=== PATIENT | female | born 1945 | race Caucasian/White ===

== ENCOUNTER 2022-03-03 21:07 | Inpatient (IN) | payer MEDICARE, OTHER ==
[~2022-03-03] VITALS: Ht 170.2 cm; Wt 105.0 kg
[~2022-03-03 21:07] MED LIST: ENAL20TA75 PO; HCTZ25T PO; NORCO10T PO; TRAZ-91 PO; ZOC40T PO
[2022-03-03] MEDS ORDERED: normal saline 1000ML IV soln IV ONE (21:20)
[2022-03-03] MEDS ORDERED: CefTRIAXone 2gm/D5W 50ml BAG 50 ML IV ONE (21:20)
[2022-03-03 22:00] LABS: BASOPHILS # (AUTO) 0.1 X10'3 (0-0.2); LYMPHOCYTES # (AUTO) 1.2 X10'3 (1.1-4.8)
[2022-03-03 22:01] LABS: BASOPHILS % (AUTO) 0.3 % (0-1); EOSINOPHILS % (AUTO) 0.1 % (0-6); LYMPHOCYTES % (AUTO) 5.2 % (21-51); MEAN CORPUSCULAR HEMOGLOBIN 27.7 PG (27.0-31.0); MEAN CORPUSCULAR HGB CONC 32.6 g/dL (33.0-36.5); MEAN CORPUSCULAR VOLUME 84.9 FL (78-98); MEAN PLATELET VOLUME 9.2 FL (7.4-10.4); MONOCYTES # (AUTO) 2.2 X10'3 (0-0.9); MONOCYTES % (AUTO) 9.7 % (2-12); NEUTROPHILS # (AUTO) 19.1 X10'3 (1.8-7.7); NEUTROPHILS % (AUTO) 84.7 % (42-75); PLATELET COUNT 306 X10'3 (140-440); RED BLOOD COUNT 4.71 X10'6 (4.20-5.60); RED CELL DISTRIBUTION WIDTH 15.1 % (11.5-14.5); WHITE BLOOD COUNT 22.5 X10'3 (4.5-11.0)
[2022-03-03 22:22] LABS: ALANINE AMINOTRANSFERASE 31 U/L (12-78); ALBUMIN 3.1 G/DL (3.4-5.0); ALBUMIN/GLOBULIN RATIO 0.6 (1.1-1.5); ALKALINE PHOSPHATASE 117 IU/L (46-116); ASPARTATE AMINO TRANSFERASE 27 U/L (10-37); BILIRUBIN,TOTAL 0.6 MG/DL (0.1-1.0); BLOOD UREA NITROGEN 19 MG/DL (7-18); BUN/CREATININE RATIO 10.6 (6.6-38.0); CHLORIDE 101 MMOL/L (99-107); CREATININE 1.79 MG/DL (0.40-0.90); SODIUM 138 MMOL/L (135-145); TOTAL PROTEIN 8.1 G/DL (6.4-8.2); eGFR 27 ML/MIN
[2022-03-03 22:30] LABS: ANION GAP 15 (8-16); CALCIUM 9.4 MG/DL (8.5-10.1); GLUCOSE 167 MG/DL (70-104); TOTAL CARBON DIOXIDE 22.3 MMOL/L (24-32)
[2022-03-03 22:34] LABS: TOTAL CELLS COUNTED 100
[2022-03-03 22:36] LABS: PLATELET ESTIMATE NORMAL
[2022-03-03] MEDS ORDERED: diphenhydrAMINE 25mg capsule PO PRN (23:05)
[2022-03-03] MEDS ORDERED: ondansetron/PF 4mg/2ml inj IV PRN (23:05)
[2022-03-03] MEDS ORDERED: acetaminophen 650mg rectal suppository RC PRN (23:05)
[2022-03-03] MEDS ORDERED: ondansetron 4mg rapidly disintigrating tab PO PRN (23:05)
[2022-03-03] MEDS ORDERED: bisacodyl 10mg suppository rectal RC PRN (23:05)
[2022-03-03] MEDS ORDERED: mag hydrox/Alum hydrox/simeth 30ml oral suspension PO PRN (23:05)
[2022-03-03] MEDS ORDERED: acetaminophen 325mg tablet PO PRN ×2 (23:05)
[2022-03-03] MEDS ORDERED: magnesium hydroxide 30ml (MOM) UD suspension PO PRN (23:05)
[2022-03-03] MEDS ORDERED: diphenhydrAMINE 50 mg/ml inj IV PRN (23:05)
[2022-03-03] MEDS ORDERED: morphine 2 MG/ML inj. syringe IV PRN (23:05)
--- NOTE | 2022-03-03 23:12 | NUR ---
GAVE CRITICAL TROPONIN RESULT TO KASSIDY. HE GAVE VERBAL ORDER TO GIVE PT 325 MG ASPIRIN PO NOW. HE WILL HAVE DISCUSSION WITH HOSPITALIST, DR LOZANO, WHETHER TO ANTICOAGULATE PT OR NOT.
[2022-03-03] MEDS ORDERED: heparin 10,000 units/1 ML INJ IV ONE (23:15)
[2022-03-03] MEDS ORDERED: aspirin 325mg tablet PO ONE (23:15)
--- NOTE | 2022-03-03 23:21 | NUR ---
PT TO CT
[2022-03-03 23:57] LABS: UA COLLECTION TYPE STRAIGHT CATH
[2022-03-03 23:59] LABS: CLARITY,URINE CLOUDY (Clear); COLOR,URINE YELLOW (Yellow)
[2022-03-03] MEDS: normal saline 1000ml 1,000 ML IV SCH (23:59)
[2022-03-04 00:10] LABS: GLUCOSE, URINE NEGATIVE (Neg); KETONES,URINE NEGATIVE (Neg); NITRITES, URINE POSITIVE (Neg); OCCULT BLOOD,URINE LARGE (Neg); PROTEIN,URINE 100 mg/dl (Neg)
[2022-03-04 00:11] LABS: LEUKOCYTE ESTERASE ,URINE LARGE (Neg); UROBILINOGEN,URINE 0.2 E.U/dL (0.2-1.0)
[2022-03-04 00:15] LABS: BACTERIA,URINE 3+ /HPF (Neg); MUCUS STRANDS FEW /LPF (Neg); SQUAMOUS EPITHELIAL CELL,UR FEW /LPF (FEW); WBC CLUMPS,URINE MODERATE /HPF (NEGATIVE); WBC,URINE TNTC /HPF (0-4)
[2022-03-04] MEDS: heparin 25,000 UNIT/250ml bag 250 ML IV PRN ×3 (00:15→19:57)
[2022-03-04 00:24] LABS: D-DIMER 1.84 MG/L FEU (0-0.50)
[2022-03-04 00:38] LABS: LIPASE < 50 U/L (73-393); MAGNESIUM 1.8 MG/DL (1.5-2.4)
[2022-03-04 00:41] LABS: CREATINE KINASE 95 U/L (26-192)
[2022-03-04] MEDS ORDERED: LOSA100T57 PO (01:08)
[2022-03-04] MEDS ORDERED: AMLO2.5T5 PO (01:08)
[2022-03-04] MEDS ORDERED: IBUP-1985 PO (01:08)
[2022-03-04] MEDS ORDERED: LEVO25TA7 PO (01:08)
[2022-03-04] MEDS ORDERED: ASPI-1397 PO (01:08)
[2022-03-04 02:55] LABS: BASOPHILS # (AUTO) 0.1 X10'3 (0-0.2); BASOPHILS % (AUTO) 0.4 % (0-1); EOSINOPHILS % (AUTO) 0 % (0-6); HEMATOCRIT 37.5 % (35.0-45.0); HEMOGLOBIN 12.1 g/dl (12.0-16.0); LYMPHOCYTES # (AUTO) 1.3 X10'3 (1.1-4.8); LYMPHOCYTES % (AUTO) 5.4 % (21-51); MEAN CORPUSCULAR HEMOGLOBIN 27.6 PG (27.0-31.0); MEAN CORPUSCULAR HGB CONC 32.4 g/dL (33.0-36.5); MEAN CORPUSCULAR VOLUME 85.3 FL (78-98); MEAN PLATELET VOLUME 8.8 FL (7.4-10.4); MONOCYTES # (AUTO) 2.9 X10'3 (0-0.9); NEUTROPHILS # (AUTO) 19.6 X10'3 (1.8-7.7); NEUTROPHILS % (AUTO) 82.2 % (42-75); PLATELET COUNT 258 X10'3 (140-440); WHITE BLOOD COUNT 23.9 X10'3 (4.5-11.0)
[2022-03-04 03:09] LABS: ALANINE AMINOTRANSFERASE 30 U/L (12-78); ALBUMIN 2.6 G/DL (3.4-5.0); ALBUMIN/GLOBULIN RATIO 0.6 (1.1-1.5); ALKALINE PHOSPHATASE 110 IU/L (46-116); ANION GAP 11 (8-16); ASPARTATE AMINO TRANSFERASE 27 U/L (10-37); BILIRUBIN,TOTAL 0.4 MG/DL (0.1-1.0); BLOOD UREA NITROGEN 18 MG/DL (7-18); BUN/CREATININE RATIO 10.2 (6.6-38.0); CALCIUM 8.6 MG/DL (8.5-10.1); CHLORIDE 103 MMOL/L (99-107); CREATININE 1.76 MG/DL (0.40-0.90); GLUCOSE 170 MG/DL (70-104); POTASSIUM 4.2 MMOL/L (3.5-5.1); SODIUM 139 MMOL/L (135-145); TOTAL PROTEIN 7.3 G/DL (6.4-8.2); eGFR 28 ML/MIN
[2022-03-04] MEDS: ipratropium/albuterol 3ml nebule NEB SCH ×5 (03:12→19:07)
[2022-03-04 03:41] LABS: PLATELET ESTIMATE NORMAL; TOTAL CELLS COUNTED 100
--- NOTE | 2022-03-04 05:00 | NUR ---
PT MOVED TO A HOSPITAL BED FOR COMFORT
[2022-03-04] MEDS: pantoprazole 40mg Tablet.DR PO SCH (07:56)
[2022-03-04] MEDS: docusate sod 100mg capsule PO SCH ×2 (07:56→20:00)
[2022-03-04] MEDS ORDERED: heparin, porcine 5000 units/ml vial SQ SCH (08:00)
[2022-03-04] MEDS ORDERED: heparin 10,000 units/1 ML INJ IV PRN (08:00)
[2022-03-04] MEDS ORDERED: methylPREDNISolone sod succ 125mg/2ml vial IV SCH (08:00)
[2022-03-04] MEDS: CefTRIAXone/D5W-Rocephin 1gm 50 ML IV SCH ×2 (08:03→20:24)
--- NOTE | 2022-03-04 08:20 | NUR ---
4,000UNITS BOLUS OF HEPAIN GIVEN,HEPAIN DIP INCEASED TO 1,200 UNITS. WE WILL MONITOR.
[2022-03-04] MEDS: normal saline 1000ml 1,000 ML IV SCH ×2 (09:05→19:36)
[2022-03-04] MEDS: azithromycin/NS 500mg/250ml 250 ML IV SCH (09:53)
--- NOTE | 2022-03-04 10:39 | NUR ---
Dr. Haley at bedside.
[2022-03-04] MEDS: heparin 10,000 units/1 ML INJ IV PRN (11:00)
[2022-03-04] MEDS ORDERED: PERFLUTREN PROTEIN-A MICROSPHR (Optison) 0.22 MG/ML 3ML VIAL IV ONE (13:40)
--- NOTE | 2022-03-04 16:18 | NUR ---
airframe technician at bedside.
[2022-03-04 21:50] VITALS: BP 157/60
[2022-03-05] MEDS: ipratropium/albuterol 3ml nebule NEB SCH ×7 (00:04→23:45)
[2022-03-05 02:00] VITALS: BP 116/51
[2022-03-05 03:32] LABS: BASOPHILS # (AUTO) 0.1 X10'3 (0-0.2); BASOPHILS % (AUTO) 0.2 % (0-1); EOSINOPHILS % (AUTO) 0 % (0-6); HEMATOCRIT 33.9 % (35.0-45.0); HEMOGLOBIN 10.8 g/dl (12.0-16.0); LYMPHOCYTES # (AUTO) 1.2 X10'3 (1.1-4.8); MEAN CORPUSCULAR HEMOGLOBIN 27.3 PG (27.0-31.0); MEAN CORPUSCULAR HGB CONC 31.7 g/dL (33.0-36.5); MEAN PLATELET VOLUME 9.1 FL (7.4-10.4); MONOCYTES # (AUTO) 1.8 X10'3 (0-0.9); MONOCYTES % (AUTO) 5.9 % (2-12); NEUTROPHILS # (AUTO) 27.5 X10'3 (1.8-7.7); NEUTROPHILS % (AUTO) 89.9 % (42-75); PLATELET COUNT 208 X10'3 (140-440); RED BLOOD COUNT 3.94 X10'6 (4.20-5.60)
[2022-03-05 03:45] LABS: ALANINE AMINOTRANSFERASE 26 U/L (12-78); ALBUMIN 2.1 G/DL (3.4-5.0); ALBUMIN/GLOBULIN RATIO 0.5 (1.1-1.5); ALKALINE PHOSPHATASE 106 IU/L (46-116); ANION GAP 12 (8-16); ASPARTATE AMINO TRANSFERASE 27 U/L (10-37); BILIRUBIN,TOTAL 0.3 MG/DL (0.1-1.0); BLOOD UREA NITROGEN 30 MG/DL (7-18); BUN/CREATININE RATIO 11.4 (6.6-38.0); CALCIUM 8.4 MG/DL (8.5-10.1); CHLORIDE 103 MMOL/L (99-107); CREATININE 2.64 MG/DL (0.40-0.90); GLUCOSE 193 MG/DL (70-104); POTASSIUM 3.3 MMOL/L (3.5-5.1); SODIUM 137 MMOL/L (135-145); TOTAL CARBON DIOXIDE 22.2 MMOL/L (24-32); TOTAL PROTEIN 6.6 G/DL (6.4-8.2); eGFR 17 ML/MIN
[2022-03-05 03:47] LABS: WHITE BLOOD COUNT 30.6 X10'3 (4.5-11.0)
--- NOTE | 2022-03-05 03:51 | NUR ---
reported critical WBC's of 30.[address] Hazel. No bew orders.
[2022-03-05] MEDS: heparin 10,000 units/1 ML INJ IV PRN (04:12)
[2022-03-05 04:28] LABS: TOTAL CELLS COUNTED 100
[2022-03-05 04:29] LABS: PLATELET ESTIMATE NORMAL
[2022-03-05] MEDS: normal saline 1000ml 1,000 ML IV SCH ×2 (05:05→15:34)
[2022-03-05 06:00] VITALS: BP 130/68
[2022-03-05 08:12] LABS: CHOLESTEROL 155 MG/DL (0-200); HDL CHOLESTEROL 31 MG/DL (35-60); LDL CHOLESTEROL 78 MG/DL (50-100); TRIGLYCERIDES 134 MG/DL (20-135)
[2022-03-05] MEDS: docusate sod 100mg capsule PO SCH ×2 (08:28→19:52)
[2022-03-05] MEDS: pantoprazole 40mg Tablet.DR PO SCH (08:29)
[2022-03-05] MEDS: CefTRIAXone/D5W-Rocephin 1gm 50 ML IV SCH ×2 (08:55→19:54)
[2022-03-05] MEDS ORDERED: magnesium 4gm in 100ml NS 100 ML IV PRN (09:05)
[2022-03-05] MEDS ORDERED: potassium Cl 20 mEq SR tablet PO PRN (09:05)
[2022-03-05] MEDS ORDERED: potassium Cl 40MEQ/1/2NS 520ml 520 ML IV PRN ×2 (09:05)
[2022-03-05] MEDS ORDERED: magnesium Cl slow-release 64mg tablet PO PRN (09:05)
[2022-03-05] MEDS ORDERED: magnesium 2GM in 50ml NS 50 ML IV PRN (09:05)
[2022-03-05] MEDS: azithromycin/NS 500mg/250ml 250 ML IV SCH (09:49)
[2022-03-05 11:00] VITALS: BP 135/69
[2022-03-05 15:00] VITALS: BP 150/74
[2022-03-05] MEDS: metoprolol tartrate 12.5mg (1/2 tablet) PO SCH ×2 (15:31→19:53)
[2022-03-05] MEDS: potassium Cl 20 mEq SR tablet PO PRN ×2 (15:31→20:02)
[2022-03-05] MEDS: aspirin 81mg tab.chew PO SCH (15:32)
--- NOTE | 2022-03-05 17:50 | NUR ---
MD Haley PAGER ID: [phone] MESSAGE: [id number] Tabatha Pedro; daughter brought in pt's advanced directive and it states she does NOT wish to prolong life. Can you address code status with pt please. thanks! Luz Maria [id number]
--- NOTE | 2022-03-05 18:44 | NUR ---
Problems reprioritized. Patient report given, questions answered & plan of care reviewed with REBECA Rodriguez.
[2022-03-05] MEDS: K and/or MAG REPLACEMENT MC SCH (19:54)
[2022-03-05 20:00] VITALS: BP 152/81
[2022-03-05] MEDS ORDERED: lactulose 20gm/30ml cup PO ONE (20:00)
[2022-03-05] MEDS: temazepam 15mg capsule PO PRN (22:11)
[2022-03-05 23:44] VITALS: BP 164/70
[2022-03-06] MEDS: normal saline 1000ml 1,000 ML IV SCH ×2 (02:03→16:24)
[2022-03-06 02:30] VITALS: BP 171/76
[2022-03-06] MEDS: ipratropium/albuterol 3ml nebule NEB SCH ×6 (04:08→23:48)
[2022-03-06] MEDS ORDERED: HYDROcodone/acetaminophen 10/325mg tab PO PRN (04:50)
[2022-03-06 06:00] VITALS: BP 172/92
[2022-03-06] MEDS: HYDROcodone/acetaminophen 5mg/325mg tablet PO PRN ×2 (06:06→20:59)
[2022-03-06 06:22] LABS: BASOPHILS % (AUTO) 0.1 % (0-1); EOSINOPHILS % (AUTO) 0 % (0-6); HEMATOCRIT 36.1 % (35.0-45.0); HEMOGLOBIN 11.7 g/dl (12.0-16.0); LYMPHOCYTES # (AUTO) 1.4 X10'3 (1.1-4.8); MEAN CORPUSCULAR HEMOGLOBIN 27.7 PG (27.0-31.0); MEAN CORPUSCULAR HGB CONC 32.5 g/dL (33.0-36.5); MEAN CORPUSCULAR VOLUME 85.2 FL (78-98); MEAN PLATELET VOLUME 9.1 FL (7.4-10.4); MONOCYTES # (AUTO) 1.6 X10'3 (0-0.9); MONOCYTES % (AUTO) 8.4 % (2-12); NEUTROPHILS # (AUTO) 16.4 X10'3 (1.8-7.7); NEUTROPHILS % (AUTO) 84.5 % (42-75); PLATELET COUNT 220 X10'3 (140-440); RED BLOOD COUNT 4.24 X10'6 (4.20-5.60); RED CELL DISTRIBUTION WIDTH 15.6 % (11.5-14.5); WHITE BLOOD COUNT 19.5 X10'3 (4.5-11.0)
--- NOTE | 2022-03-06 06:41 | NUR ---
reported to days. noted pt given a norco for headache. npo for procedure
[2022-03-06 06:56] LABS: ALANINE AMINOTRANSFERASE 28 U/L (12-78); ALBUMIN 2.2 G/DL (3.4-5.0); ALBUMIN/GLOBULIN RATIO 0.5 (1.1-1.5); ALKALINE PHOSPHATASE 107 IU/L (46-116); ANION GAP 12 (8-16); ASPARTATE AMINO TRANSFERASE 27 U/L (10-37); BILIRUBIN,TOTAL 0.2 MG/DL (0.1-1.0); BLOOD UREA NITROGEN 33 MG/DL (7-18); BUN/CREATININE RATIO 18.1 (6.6-38.0); CALCIUM 8.7 MG/DL (8.5-10.1); CHLORIDE 109 MMOL/L (99-107); CHOL/HDL RATIO 13.3 (0.00-4.99); CHOLESTEROL 200 MG/DL (0-200); CREATININE 1.82 MG/DL (0.40-0.90); GLUCOSE 130 MG/DL (70-104); HDL CHOLESTEROL 15 MG/DL (35-60); LDL CHOLESTEROL 108 MG/DL (50-100); MAGNESIUM 1.9 MG/DL (1.5-2.4); POTASSIUM 3.8 MMOL/L (3.5-5.1); SODIUM 141 MMOL/L (135-145); TOTAL CARBON DIOXIDE 20.2 MMOL/L (24-32); TOTAL PROTEIN 6.7 G/DL (6.4-8.2); TRIGLYCERIDES 269 MG/DL (20-135); eGFR 27 ML/MIN
[2022-03-06] MEDS: aspirin 81mg tab.chew PO SCH (07:23)
[2022-03-06] MEDS: docusate sod 100mg capsule PO SCH ×2 (07:23→20:00)
[2022-03-06] MEDS: CefTRIAXone/D5W-Rocephin 1gm 50 ML IV SCH ×2 (07:24→19:05)
[2022-03-06] MEDS: levoTHYROXINE 25mcg tablet PO SCH (07:24)
[2022-03-06] MEDS: pantoprazole 40mg Tablet.DR PO SCH (07:24)
[2022-03-06] MEDS: metoprolol tartrate 12.5mg (1/2 tablet) PO SCH ×2 (07:24→20:59)
[2022-03-06] MEDS: atorvastatin 20mg tablet PO SCH (07:24)
[2022-03-06] MEDS: K and/or MAG REPLACEMENT MC SCH ×2 (07:32→20:00)
[2022-03-06] MEDS ORDERED: aspirin 81mg, enteric-coated 1 TAB TABLET.DR PO SCH (08:00)
[2022-03-06] MEDS ORDERED: losartan 50mg tablet PO SCH (08:00)
[2022-03-06] MEDS: azithromycin/NS 500mg/250ml 250 ML IV SCH (08:38)
[2022-03-06 11:00] VITALS: BP 149/73
[2022-03-06] MEDS ORDERED: morphine 4 MG/ML inj SYRINge IV PRN (12:35)
[2022-03-06] MEDS ORDERED: ringers solution, lacted 1,000 ML IV SCH (12:35)
[2022-03-06] MEDS ORDERED: ondansetron/PF 4mg/2ml inj IV PRN (12:35)
[2022-03-06] MEDS ORDERED: meperidine/PF 25mg/ml syringe IV PRN ×3 (12:35)
[2022-03-06] MEDS ORDERED: proCHLORperazine 10 MG/2 ml inj IV PRN (12:35)
[2022-03-06] MEDS ORDERED: morphine 2 MG/ML inj. syringe IV PRN (12:35)
--- NOTE | 2022-03-06 13:00 | NUR ---
Called OR, pt still on schedule. Will probably take after 5pm.
[2022-03-06 15:00] VITALS: BP 155/71
[2022-03-06 18:00] VITALS: BP 177/74
--- NOTE | 2022-03-06 18:25 | NUR ---
Problems reprioritized. Patient report given, questions answered & plan of care reviewed with REBECA Rodriguez.
--- NOTE | 2022-03-06 19:30 | NUR ---
dr. hernadez at bedside. pro and con of stent operation with family
[2022-03-06] MEDS ORDERED: amLODIPine 2.5mg tablet PO SCH (21:00)
--- NOTE | 2022-03-06 21:30 | NUR ---
OR has a case that will take another 2 hours. post poned stents until tomorrow. explained to patient and suggested to call family - patient declined -"i'll tell them in the morning." orders received for am breakfast and npo at 0730. will send down request for breakfast tray. pt received water and a sandwich and juice for tonight.
[2022-03-06 22:00] VITALS: BP 179/93
[2022-03-07] VITALS (18 sets, daily range): BP systolic 125–206; BP diastolic 67–84
[2022-03-07] MEDS: ipratropium/albuterol 3ml nebule NEB SCH ×6 (03:00→23:00)
[2022-03-07] MEDS: normal saline 1000ml 1,000 ML IV SCH ×4 (03:18→20:03)
[2022-03-07 06:38] LABS: BASOPHILS % (AUTO) 0.1 % (0-1); EOSINOPHILS % (AUTO) 0.2 % (0-6); HEMATOCRIT 33.9 % (35.0-45.0); HEMOGLOBIN 10.9 g/dl (12.0-16.0); LYMPHOCYTES # (AUTO) 1.6 X10'3 (1.1-4.8); LYMPHOCYTES % (AUTO) 13.7 % (21-51); MEAN CORPUSCULAR HEMOGLOBIN 27.5 PG (27.0-31.0); MEAN CORPUSCULAR HGB CONC 32.3 g/dL (33.0-36.5); MEAN CORPUSCULAR VOLUME 85.1 FL (78-98); MEAN PLATELET VOLUME 8.8 FL (7.4-10.4); MONOCYTES # (AUTO) 1.2 X10'3 (0-0.9); MONOCYTES % (AUTO) 9.8 % (2-12); NEUTROPHILS # (AUTO) 9.2 X10'3 (1.8-7.7); NEUTROPHILS % (AUTO) 76.2 % (42-75); PLATELET COUNT 218 X10'3 (140-440); RED BLOOD COUNT 3.98 X10'6 (4.20-5.60); RED CELL DISTRIBUTION WIDTH 15.6 % (11.5-14.5)
--- NOTE | 2022-03-07 06:50 | NUR ---
reported to days. noted pt will be NPO for surgery at 0730. Day RN aware of time and need for entering order for dietary npo.
[2022-03-07 07:06] LABS: ALANINE AMINOTRANSFERASE 23 U/L (12-78); ALBUMIN 2.1 G/DL (3.4-5.0); ALBUMIN/GLOBULIN RATIO 0.5 (1.1-1.5); ALKALINE PHOSPHATASE 96 IU/L (46-116); ANION GAP 12 (8-16); ASPARTATE AMINO TRANSFERASE 21 U/L (10-37); BILIRUBIN,TOTAL 0.3 MG/DL (0.1-1.0); BLOOD UREA NITROGEN 25 MG/DL (7-18); BUN/CREATININE RATIO 17.4 (6.6-38.0); CALCIUM 8.4 MG/DL (8.5-10.1); CHLORIDE 110 MMOL/L (99-107); CREATININE 1.44 MG/DL (0.40-0.90); GLUCOSE 108 MG/DL (70-104); MAGNESIUM 1.9 MG/DL (1.5-2.4); POTASSIUM 3.3 MMOL/L (3.5-5.1); SODIUM 143 MMOL/L (135-145); TOTAL CARBON DIOXIDE 21.3 MMOL/L (24-32); TOTAL PROTEIN 6.4 G/DL (6.4-8.2); eGFR 35 ML/MIN
[2022-03-07] MEDS: metoprolol tartrate 12.5mg (1/2 tablet) PO SCH ×2 (07:57→20:01)
[2022-03-07] MEDS: aspirin 81mg tab.chew PO SCH (07:57)
[2022-03-07] MEDS: docusate sod 100mg capsule PO SCH ×2 (07:58→20:00)
[2022-03-07] MEDS: pantoprazole 40mg Tablet.DR PO SCH (07:58)
[2022-03-07] MEDS: levoTHYROXINE 25mcg tablet PO SCH (07:58)
[2022-03-07] MEDS: atorvastatin 20mg tablet PO SCH (07:58)
[2022-03-07] MEDS: potassium Cl 20 mEq SR tablet PO PRN ×3 (07:58→23:55)
[2022-03-07] MEDS: CefTRIAXone/D5W-Rocephin 1gm 50 ML IV SCH ×2 (07:59→20:00)
[2022-03-07] MEDS: K and/or MAG REPLACEMENT MC SCH ×2 (08:00→20:18)
--- NOTE | 2022-03-07 09:03 | NUR ---
pt. refused morning svs--wanted to rest
[2022-03-07] MEDS: azithromycin/NS 500mg/250ml 250 ML IV SCH (09:32)
[2022-03-07] MEDS: hydrALAZINE 20mg/ml inj. IV PRN ×2 (10:47→19:22)
--- NOTE | 2022-03-07 11:35 | NUR ---
pt. refused 1100 svn stating that she wants to sleep. no resp difficulty observed
[2022-03-07] MEDS ORDERED: iohexol 350MG/ML 100ml bottle IV ONE (15:54)
--- NOTE | 2022-03-07 16:45 | NUR ---
RT not available for 1500 SVN
[2022-03-07] MEDS ORDERED: midazolam 1 mg/ML 2ml injection ONE (16:47)
[2022-03-07] MEDS ORDERED: fentaNYL/PF 50MCG/1 ML 2ML syringe ONE (16:47)
[2022-03-07] MEDS ORDERED: propofol inj 20 ML IV ONE (16:48)
[2022-03-07] MEDS ORDERED: ondansetron/PF 4mg/2ml inj ONE (17:19)
[2022-03-07] MEDS ORDERED: dexamethasone sod phosphate 4mg/ml inj. ONE (17:19)
[2022-03-07] MEDS ORDERED: oxybutynin 5mg tablet PO PRN (17:25)
--- NOTE | 2022-03-07 17:35 | NUR ---
Received from OR via BED, accompanied by Anesthesiologist and report given by Anesthesiologist. PATIENT WAKING UP, NO S/S OF PAIN, V/S WNL, SCD ON, 20G AND 22G TO RUE, CYSTOSCOPY NO DRESSING SURGICAL SITE CLEAR
--- NOTE | 2022-03-07 18:15 | NUR ---
PATIENT A&OX4, DENIES PAIN, V/S WNL, SCD ON, 20G AND 22G TO RUE, CYSTOSCOPY NO DRESSING SURGICAL SITE CLEAR. PATIENT TAKEN TO ROOM WITH ALL BELONGINGS AND HOOKED UP TO MONITORS IN ROOM AND GIVEN CALL LIGHT, REPORT GIVEN TO RN WHO HAS TAKEN OVER PATIENT CARE.
--- NOTE | 2022-03-07 18:58 | NUR ---
Problems reprioritized. Patient report given, questions answered & plan of care reviewed with REBECA Davis.
[2022-03-07] MEDS: morphine 2 MG/ML inj. syringe IV PRN (19:22)
[2022-03-07] MEDS: amLODIPine 5mg tablet PO SCH (20:02)
[2022-03-07] MEDS: HYDROcodone/acetaminophen 10/325mg tab PO PRN (23:35)
[2022-03-08] MEDS: temazepam 15mg capsule PO PRN ×2 (00:04→22:31)
[2022-03-08 02:00] VITALS: BP 172/76
[2022-03-08] MEDS: ipratropium/albuterol 3ml nebule NEB SCH ×6 (03:00→22:59)
[2022-03-08] MEDS: hydrALAZINE 20mg/ml inj. IV PRN (03:35)
[2022-03-08] MEDS: morphine 2 MG/ML inj. syringe IV PRN (03:42)
--- NOTE | 2022-03-08 04:13 | NUR ---
Student documentation: I have reviewed and agree with all interventions, assessments performed and documented by JULIANA Sol.
[2022-03-08 06:00] VITALS: BP 160/71
--- NOTE | 2022-03-08 06:47 | NUR ---
Problems reprioritized. Patient report given, questions answered & plan of care reviewed with REBECA Sánchez.
[2022-03-08 06:57] LABS: BASOPHILS % (AUTO) 0.1 % (0-1); EOSINOPHILS % (AUTO) 0 % (0-6); HEMATOCRIT 34.2 % (35.0-45.0); HEMOGLOBIN 11.3 g/dl (12.0-16.0); LYMPHOCYTES # (AUTO) 1.1 X10'3 (1.1-4.8); LYMPHOCYTES % (AUTO) 11.9 % (21-51); MEAN CORPUSCULAR HEMOGLOBIN 28.1 PG (27.0-31.0); MEAN CORPUSCULAR HGB CONC 33.1 g/dL (33.0-36.5); MEAN CORPUSCULAR VOLUME 84.9 FL (78-98); MONOCYTES # (AUTO) 0.4 X10'3 (0-0.9); MONOCYTES % (AUTO) 4.2 % (2-12); NEUTROPHILS # (AUTO) 7.9 X10'3 (1.8-7.7); NEUTROPHILS % (AUTO) 83.8 % (42-75); PLATELET COUNT 249 X10'3 (140-440); RED BLOOD COUNT 4.03 X10'6 (4.20-5.60); RED CELL DISTRIBUTION WIDTH 15.6 % (11.5-14.5); WHITE BLOOD COUNT 9.4 X10'3 (4.5-11.0)
[2022-03-08] MEDS: pantoprazole 40mg Tablet.DR PO SCH (07:12)
[2022-03-08] MEDS: docusate sod 100mg capsule PO SCH ×2 (07:12→19:32)
[2022-03-08] MEDS: amLODIPine 5mg tablet PO SCH ×2 (07:14→19:33)
[2022-03-08] MEDS: HYDROcodone/acetaminophen 10/325mg tab PO PRN ×3 (07:15→22:31)
[2022-03-08] MEDS: metoprolol tartrate 12.5mg (1/2 tablet) PO SCH ×2 (07:16→19:32)
[2022-03-08] MEDS: atorvastatin 20mg tablet PO SCH (07:16)
[2022-03-08] MEDS: phenazopyridine 100mg tablet PO PRN (07:17)
[2022-03-08] MEDS: CefTRIAXone/D5W-Rocephin 1gm 50 ML IV SCH ×2 (07:17→19:35)
[2022-03-08] MEDS: levoTHYROXINE 25mcg tablet PO SCH (07:19)
[2022-03-08 07:24] LABS: ALANINE AMINOTRANSFERASE 25 U/L (12-78); ALBUMIN 2.2 G/DL (3.4-5.0); ALBUMIN/GLOBULIN RATIO 0.5 (1.1-1.5); ALKALINE PHOSPHATASE 99 IU/L (46-116); ANION GAP 12 (8-16); ASPARTATE AMINO TRANSFERASE 20 U/L (10-37); BILIRUBIN,TOTAL 0.3 MG/DL (0.1-1.0); BLOOD UREA NITROGEN 22 MG/DL (7-18); BUN/CREATININE RATIO 17.3 (6.6-38.0); CALCIUM 8.5 MG/DL (8.5-10.1); CHLORIDE 109 MMOL/L (99-107); CREATININE 1.27 MG/DL (0.40-0.90); GLUCOSE 133 MG/DL (70-104); POTASSIUM 4.4 MMOL/L (3.5-5.1); SODIUM 141 MMOL/L (135-145); TOTAL CARBON DIOXIDE 20.1 MMOL/L (24-32); TOTAL PROTEIN 6.6 G/DL (6.4-8.2); eGFR 41 ML/MIN
[2022-03-08] MEDS: normal saline 1000ml 1,000 ML IV SCH ×2 (07:28→22:32)
[2022-03-08] MEDS: azithromycin/NS 500mg/250ml 250 ML IV SCH (08:00)
[2022-03-08] MEDS: K and/or MAG REPLACEMENT MC SCH ×2 (08:00→19:47)
[2022-03-08] MEDS: aspirin 81mg tab.chew PO SCH (08:30)
[2022-03-08 10:11] VITALS: BP 115/54
--- NOTE | 2022-03-08 11:19 | NUR ---
Initial: Pt admit for sepsis secondary to pyelonephritis with UTI, acute versus chronic kidney disease, and type II OR secondary to demand ischemia d/t sepsis. Pt currently POD #1 s/p cystoscopy, bilateral retrograde pyelogram, and bilateral ureteral stent placement. Pt on a regular diet and overall eating well, documented with average 92% PO intake throughout LOS meeting estimated nutrient needs. LBM 03/07, receiving routine bowel care. No nutrition intervention implemented at this time. Will continue to follow. Recommendations: 1) Continue regular diet 2) Monitor need for ONS/additional protein 3) Routine bowel care 4) Weekly scaled weights Addendum: 03/08/22 at [address] Amended: Links added.
--- NOTE | 2022-03-08 11:35 | NUR ---
reviewed student rn physical assessment , primary rn agrees with all documented findings
[2022-03-08 16:27] VITALS: BP 143/67
[2022-03-08 18:00] VITALS: BP 163/71
--- NOTE | 2022-03-08 18:08 | NUR ---
Problems reprioritized. Patient report given, questions answered & plan of care reviewed with nayla dawson .
[2022-03-08 22:00] VITALS: BP 132/64
[2022-03-09 02:00] VITALS: BP 164/72
[2022-03-09] MEDS: ipratropium/albuterol 3ml nebule NEB SCH ×6 (03:00→23:00)
[2022-03-09] MEDS: hydrALAZINE 20mg/ml inj. IV PRN ×2 (03:19→20:17)
[2022-03-09] MEDS: HYDROcodone/acetaminophen 10/325mg tab PO PRN ×4 (03:22→22:04)
--- NOTE | 2022-03-09 04:46 | NUR ---
Student documentation: I have reviewed and agree with all interventions, assessments performed and documented by JULIANA Sol.
[2022-03-09 06:00] VITALS: BP 160/90
--- NOTE | 2022-03-09 06:18 | NUR ---
Problems reprioritized. Patient report given, questions answered & plan of care reviewed with REBECA Sánchez.
[2022-03-09] MEDS: docusate sod 100mg capsule PO SCH ×2 (07:10→20:19)
[2022-03-09] MEDS: phenazopyridine 100mg tablet PO PRN ×2 (07:12→23:10)
[2022-03-09] MEDS: amLODIPine 5mg tablet PO SCH ×2 (07:12→20:19)
[2022-03-09] MEDS: levoTHYROXINE 25mcg tablet PO SCH (07:13)
[2022-03-09] MEDS: metoprolol tartrate 12.5mg (1/2 tablet) PO SCH ×2 (07:13→20:20)
[2022-03-09] MEDS: pantoprazole 40mg Tablet.DR PO SCH (07:14)
[2022-03-09] MEDS: CefTRIAXone/D5W-Rocephin 1gm 50 ML IV SCH ×2 (07:14→20:21)
[2022-03-09] MEDS: atorvastatin 20mg tablet PO SCH (07:15)
[2022-03-09 07:21] LABS: MAGNESIUM 1.8 MG/DL (1.5-2.4)
[2022-03-09] MEDS: K and/or MAG REPLACEMENT MC SCH ×2 (08:00→20:00)
[2022-03-09] MEDS: normal saline 1000ml 1,000 ML IV SCH ×3 (09:05→23:04)
[2022-03-09] MEDS: aspirin 81mg tab.chew PO SCH (10:17)
[2022-03-09] MEDS: azithromycin/NS 500mg/250ml 250 ML IV SCH (10:25)
[2022-03-09 10:41] LABS: BASOPHILS # (AUTO) 0.2 X10'3 (0-0.2); BASOPHILS % (AUTO) 1.2 % (0-1); EOSINOPHILS # (AUTO) 0.1 X10'3 (0-0.9); EOSINOPHILS % (AUTO) 0.8 % (0-6); HEMATOCRIT 33.8 % (35.0-45.0); HEMOGLOBIN 10.9 g/dl (12.0-16.0); LYMPHOCYTES # (AUTO) 2.8 X10'3 (1.1-4.8); LYMPHOCYTES % (AUTO) 20.4 % (21-51); MEAN CORPUSCULAR HEMOGLOBIN 27.4 PG (27.0-31.0); MEAN CORPUSCULAR HGB CONC 32.1 g/dL (33.0-36.5); MEAN CORPUSCULAR VOLUME 85.4 FL (78-98); MEAN PLATELET VOLUME 9.3 FL (7.4-10.4); MONOCYTES # (AUTO) 1.3 X10'3 (0-0.9); MONOCYTES % (AUTO) 9.6 % (2-12); NEUTROPHILS # (AUTO) 9.2 X10'3 (1.8-7.7); PLATELET COUNT 280 X10'3 (140-440); RED BLOOD COUNT 3.96 X10'6 (4.20-5.60); RED CELL DISTRIBUTION WIDTH 15.6 % (11.5-14.5); WHITE BLOOD COUNT 13.5 X10'3 (4.5-11.0)
[2022-03-09 10:45] LABS: ALBUMIN 2.2 G/DL (3.4-5.0); ANION GAP 15 (8-16); BLOOD UREA NITROGEN 21 MG/DL (7-18); BUN/CREATININE RATIO 16.5 (6.6-38.0); CALCIUM 8.4 MG/DL (8.5-10.1); CHLORIDE 109 MMOL/L (99-107); CREATININE 1.27 MG/DL (0.40-0.90); GLUCOSE 92 MG/DL (70-104); POTASSIUM 3.4 MMOL/L (3.5-5.1); SODIUM 144 MMOL/L (135-145); eGFR 41 ML/MIN
[2022-03-09 10:55] LABS: ANISOCYTOSIS 1+; MICROCYTOSIS 1+; PLATELET ESTIMATE NORMAL; TOTAL CELLS COUNTED 100
[2022-03-09 11:49] VITALS: BP 139/63
--- NOTE | 2022-03-09 15:37 | NUR ---
pt ambualted with primary rn 200ft. during walk pt stated she felt like she was losing her equilibrium and requested to sit. primary rn wheeled pt back to bed. will continue to monitor pt
[2022-03-09 18:00] VITALS: BP 186/79
[2022-03-09] MEDS: temazepam 15mg capsule PO PRN (22:03)
[2022-03-09 22:32] VITALS: BP 162/93
[2022-03-10 02:00] VITALS: BP 168/73
[2022-03-10] MEDS: hydrALAZINE 20mg/ml inj. IV PRN (02:13)
[2022-03-10] MEDS: ipratropium/albuterol 3ml nebule NEB SCH ×3 (02:29→11:00)
--- NOTE | 2022-03-10 04:59 | NUR ---
Student documentation: I have reviewed and agree with all interventions, assessments performed and documented by JULIANA Sol.
[2022-03-10] MEDS: HYDROcodone/acetaminophen 10/325mg tab PO PRN ×2 (05:55→10:18)
[2022-03-10 05:59] LABS: BASOPHILS # (AUTO) 0.1 X10'3 (0-0.2); BASOPHILS % (AUTO) 0.4 % (0-1); EOSINOPHILS # (AUTO) 0.2 X10'3 (0-0.9); HEMATOCRIT 37.6 % (35.0-45.0); HEMOGLOBIN 12.1 g/dl (12.0-16.0); LYMPHOCYTES # (AUTO) 2.7 X10'3 (1.1-4.8); LYMPHOCYTES % (AUTO) 22.2 % (21-51); MEAN CORPUSCULAR HEMOGLOBIN 27.3 PG (27.0-31.0); MEAN CORPUSCULAR HGB CONC 32.1 g/dL (33.0-36.5); MEAN CORPUSCULAR VOLUME 85.1 FL (78-98); MEAN PLATELET VOLUME 8.7 FL (7.4-10.4); MONOCYTES # (AUTO) 1.3 X10'3 (0-0.9); MONOCYTES % (AUTO) 10.7 % (2-12); NEUTROPHILS # (AUTO) 7.8 X10'3 (1.8-7.7); NEUTROPHILS % (AUTO) 64.7 % (42-75); PLATELET COUNT 305 X10'3 (140-440); RED BLOOD COUNT 4.42 X10'6 (4.20-5.60); RED CELL DISTRIBUTION WIDTH 15.7 % (11.5-14.5); WHITE BLOOD COUNT 12.1 X10'3 (4.5-11.0)
[2022-03-10 06:00] VITALS: BP 154/76
[2022-03-10 06:09] LABS: ALBUMIN 2.2 G/DL (3.4-5.0); ANION GAP 11 (8-16); BLOOD UREA NITROGEN 14 MG/DL (7-18); BUN/CREATININE RATIO 12.7 (6.6-38.0); CALCIUM 8.5 MG/DL (8.5-10.1); CHLORIDE 109 MMOL/L (99-107); GLUCOSE 98 MG/DL (70-104); MAGNESIUM 1.7 MG/DL (1.5-2.4); POTASSIUM 3.4 MMOL/L (3.5-5.1); SODIUM 142 MMOL/L (135-145); TOTAL CARBON DIOXIDE 22.5 MMOL/L (24-32); eGFR 48 ML/MIN
--- NOTE | 2022-03-10 06:28 | NUR ---
Problems reprioritized. Patient report given, questions answered & plan of care reviewed with REBECA King.
[2022-03-10] MEDS ORDERED: POTASSIUM BICARB 20meq eff tab 20 MEQ TABLET.EFF PO PRN (09:00)
[2022-03-10] MEDS: pantoprazole 40mg Tablet.DR PO SCH (10:07)
[2022-03-10] MEDS: metoprolol tartrate 12.5mg (1/2 tablet) PO SCH (10:13)
[2022-03-10] MEDS: aspirin 81mg tab.chew PO SCH (10:14)
[2022-03-10] MEDS: docusate sod 100mg capsule PO SCH (10:14)
[2022-03-10] MEDS: levoTHYROXINE 25mcg tablet PO SCH (10:14)
[2022-03-10] MEDS: atorvastatin 20mg tablet PO SCH (10:15)
[2022-03-10] MEDS: amLODIPine 5mg tablet PO SCH (10:15)
[2022-03-10] MEDS: CefTRIAXone/D5W-Rocephin 1gm 50 ML IV SCH (10:16)
[2022-03-10] MEDS: azithromycin/NS 500mg/250ml 250 ML IV SCH (11:50)
[2022-03-10 12:45] VITALS: BP 128/88
--- NOTE | 2022-03-10 16:01 | NUR ---
Patient stable for transfer per Dr. Haley. [facility] Called report to Jaclyn WALL[facility] at [facility]. All belongings collected and sent with patient. Picked up by janna cargo at 1530.
== END 2022-03-10 15:34 | DRG 853 ==
LOC: ER 21:07 → ED HOLD 23:09 → EDBEDREQ 03-04 21:03 → PCU 3S 03-04 21:50
PROVIDERS: ADMIT Family Medicine; ATTEND Family Medicine
PROC: BT141ZZ Fluoroscopy of Kidneys, Ureters and Bladder using Low Osmolar Contrast (ICD-10-PCS; 2022-03-07)
PROC: 0T788DZ Dilation of Bilateral Ureters with Intraluminal Device, Via Natural or Artificial Opening Endoscopic (ICD-10-PCS; principal; 2022-03-07 16:41)
DX: A41.9 Sepsis, unspecified organism (principal); G93.41 Metabolic encephalopathy; I21.A1 Myocardial infarction type 2; I50.33 Acute on chronic diastolic (congestive) heart failure; J44.1 Chronic obstructive pulmonary disease with (acute) exacerbation; N13.6 Pyonephrosis; N17.9 Acute kidney failure, unspecified; I13.0 Hypertensive heart and chronic kidney disease with heart failure and stage 1 through stage 4 chronic kidney disease, or unspecified chronic kidney disease; Z20.822 Contact with and (suspected) exposure to COVID-19; Z66 Do not resuscitate; B96.1 Klebsiella pneumoniae [K. pneumoniae] as the cause of diseases classified elsewhere; E78.5 Hyperlipidemia, unspecified; G89.29 Other chronic pain; K44.9 Diaphragmatic hernia without obstruction or gangrene; K57.90 Diverticulosis of intestine, part unspecified, without perforation or abscess without bleeding; N18.9 Chronic kidney disease, unspecified; M19.90 Unspecified osteoarthritis, unspecified site; I45.10 Unspecified right bundle-branch block; T38.0X5A Adverse effect of glucocorticoids and synthetic analogues, initial encounter; Z79.82 Long term (current) use of aspirin; Z79.899 Other long term (current) drug therapy; Z87.891 Personal history of nicotine dependence; Z90.710 Acquired absence of both cervix and uterus; Z90.49 Acquired absence of other specified parts of digestive tract
CPT/HCPCS: 36415; 70450; 71045; 71250; 74018; 74176; 74420; 76000; 80048; 80053; 80061; 81001; 81003; 82550; 83605; 83690; 83735; 83880; 84100; 84145; 84443; 84484; 85007; 85025; 85379; 85610; 85730; 87040; 87077; 87081; 87088; 87186; 87635; 87811; 93005; 93306; 94640; 94760; 97116; 97161; 97530; 99291; A4353; A4618; A6258; C1758; C1769; C2617; G0378; J0360; J0456; J0696; J1100; J1644; J2250; J2270; J2405; J2704; J2930; J3010; J7030; J7040; J7120; Q9967

== ENCOUNTER 2023-02-20 05:29 | Inpatient (IN) | payer MEDICARE, OTHER ==
[2023-02-18 13:40] LABS: BILIRUBIN,URINE NEGATIVE (Neg); CLARITY,URINE CLOUDY (Clear); COLOR,URINE YELLOW (Yellow); GLUCOSE, URINE NEGATIVE (Neg); KETONES,URINE NEGATIVE (Neg); LEUKOCYTE ESTERASE ,URINE LARGE (Neg); NITRITES, URINE POSITIVE (Neg); OCCULT BLOOD,URINE LARGE (Neg); PH,URINE 7.5 (4.8-8.0); PROTEIN,URINE NEGATIVE (Neg); UROBILINOGEN,URINE 0.2 E.U/dL (0.2-1.0)
[2023-02-18 13:44] LABS: UA COLLECTION TYPE VOIDED
[2023-02-18 13:45] LABS: BACTERIA,URINE 4+ /HPF (Neg); WBC,URINE 50-100 /HPF (0-4)
[2023-02-18 13:46] LABS: SQUAMOUS EPITHELIAL CELL,UR FEW /LPF (FEW); WBC CLUMPS,URINE MODERATE /HPF (NEGATIVE)
[2023-02-18 14:29] LABS: BASOPHILS # (AUTO) 0.1 X10'3 (0-0.2); BASOPHILS % (AUTO) 0.7 % (0-1); EOSINOPHILS # (AUTO) 0.1 X10'3 (0-0.9); EOSINOPHILS % (AUTO) 0.9 % (0-6); LYMPHOCYTES # (AUTO) 2.3 X10'3 (1.1-4.8); LYMPHOCYTES % (AUTO) 29.7 % (21-51); MEAN CORPUSCULAR HEMOGLOBIN 28.7 PG (27.0-31.0); MEAN CORPUSCULAR HGB CONC 32.9 g/dL (33.0-36.5); MEAN CORPUSCULAR VOLUME 87.2 FL (78-98); MEAN PLATELET VOLUME 8.4 FL (7.4-10.4); MONOCYTES # (AUTO) 0.8 X10'3 (0-0.9); MONOCYTES % (AUTO) 10.5 % (2-12); NEUTROPHILS # (AUTO) 4.5 X10'3 (1.8-7.7); NEUTROPHILS % (AUTO) 58.2 % (42-75); PRE OP HEMATOCRIT 39.5 % (35.0-45.0); PRE OP PLATELET COUNT 217 X10'3 (140-440); PRE OP WHITE BLOOD COUNT 7.7 10'3 (4.8-10.8); RED BLOOD COUNT 4.53 X10'6 (4.20-5.60); RED CELL DISTRIBUTION WIDTH 14.3 % (11.5-14.5)
[2023-02-18 14:38] LABS: PRE OP PROTIME 9.8 SECONDS (9.0-12.0)
[2023-02-18 14:39] LABS: PRE OP INR 0.9 INR
[2023-02-18 14:41] LABS: ALBUMIN 3.5 G/DL (3.4-5.0); ALBUMIN/GLOBULIN RATIO 0.9 (1.1-1.5); ALKALINE PHOSPHATASE 93 IU/L (46-116); BLOOD UREA NITROGEN 19 MG/DL (7-18); BUN/CREATININE RATIO 12.8 (10.0-20.0); CALCIUM 9.3 MG/DL (8.5-10.1); CHLORIDE 102 MMOL/L (99-107); CREATININE 1.48 MG/DL (0.40-0.90); PRE OP ALT 27 U/L (30-65); PRE OP ANION GAP 4 (8-16); PRE OP AST 24 U/L (10-37); PRE OP BILIRUB, TOTAL 0.2 MG/DL (0.0-1.0); PRE OP GLUCOSE 101 MG/DL (70-104); PRE OP POTASSIUM 4.2 MMOL/L (3.4-5.1); PRE OP SODIUM 135 MMOL/L (135-145); TOTAL CARBON DIOXIDE 29.1 MMOL/L (24-32); TOTAL PROTEIN 7.3 G/DL (6.4-8.2); eGFR 34 ML/MIN
[~2023-02-20] VITALS: Ht 165.1 cm; Wt 93.6 kg
[2023-02-20] VITALS (22 sets, daily range): BP systolic 93–179; BP diastolic 47–90; PULSE 74–80; RESP 14–23; TEMP 98.3; O2SAT 91–98
[~2023-02-20 05:29] MED LIST changes: +AMLO2.5T5 PO; +CAFF200T13 PO; -ENAL20TA75 PO; +FLO0.4C PO; -HCTZ25T PO; +LOSA50TA64 PO; +OXYB5TAB16 PO; -TRAZ-91 PO; -ZOC40T PO; +ringers solution, lacted 1,000 ML IV SCH
[2023-02-20] MEDS ORDERED: famotidine 20mg tablet PO ONE (05:30)
[2023-02-20] MEDS ORDERED: metoprolol tartrate 12.5mg (1/2 tablet) PO ONE (05:30)
[2023-02-20] MEDS ORDERED: mupirocin 2% nasal ointment 1gm UD NS ONE (05:30)
[2023-02-20] MEDS ORDERED: cefazolin 2gm/D5W 100mL 100 ML IV ONE (05:30)
[2023-02-20] MEDS ORDERED: LORazepam 2 mg/ml vial IV PRN (05:30)
[2023-02-20] MEDS ORDERED: vancomycin 1,500 MG in NS 300ml IV soln IV ONE (05:30)
[2023-02-20] MEDS ORDERED: [UNRECOGNIZED DRUG - OTHER] IV SCH (06:15)
[2023-02-20] MEDS ORDERED: Insulin Reg/NS 100units/100mL 100 ML IV SCH ×2 (06:15→12:45)
[2023-02-20] MEDS ORDERED: SULF1TAB49 PO (06:33)
[2023-02-20] MEDS ORDERED: ceFAZolin 1000mg inj ONE (06:55)
[2023-02-20] MEDS ORDERED: BUPIVAcaine/PF 2.5 mg/ml (0.25%) 30ml vial ONE (06:55)
[2023-02-20] MEDS ORDERED: epiNEPHrine 1 mg/ml inj ONE (06:55)
[2023-02-20] MEDS ORDERED: vancomycin 1,000mg inj ONE (06:55)
[2023-02-20] MEDS ORDERED: protamine sulf. 10mg/ml inj. IV ONE (07:53)
[2023-02-20] MEDS ORDERED: isoflurane 100ml inhalation liquid IH ONE (07:53)
[2023-02-20] MEDS ORDERED: DOBUTamine/D5W 500mg/250ml premix IV ONE (07:53)
[2023-02-20] MEDS ORDERED: sevoflurane 250ml liquid IH ONE (07:53)
[2023-02-20] MEDS ORDERED: aminocaproic acid 250 MG/1 ML inj. ONE (07:53)
[2023-02-20] MEDS ORDERED: NORepinephrine 8 MG in NS 250 ML BAG (32 mcg/ml) IV ONE (07:53)
[2023-02-20] MEDS ORDERED: nitroGLYCERIN in D5W 50mg/250ml (Tridil) infusion IV ONE (07:53)
[2023-02-20] MEDS ORDERED: SUfentanil 50mcg/ml 1ml amp IV ONE (08:06)
[2023-02-20] MEDS ORDERED: LORazepam 2 mg/ml vial ONE (08:08)
[2023-02-20] MEDS ORDERED: LIDOcaine 2% (20mg/ml) 5ml vial ONE (08:17)
[2023-02-20] MEDS ORDERED: propofol inj 20 ML IV ONE (08:17)
[2023-02-20] MEDS ORDERED: rocuronium 10mg/ml inj IV ONE ×2 (08:49)
[2023-02-20] MEDS ORDERED: phenylephrine 10mg/ml inj. -priapism dosing ONE (08:49)
[2023-02-20] MEDS ORDERED: papaverine 30 mg/ml 2ml inj. ICAR ONE (09:37)
[2023-02-20] MEDS ORDERED: heparin 10,000 units/1 ML INJ IR ONE (09:39)
[2023-02-20] MEDS ORDERED: albumin (human) 25% 100ml IV 0 ML IV ONE (11:31)
[2023-02-20] MEDS ORDERED: albumin (human) 25% 100ml IV 100 ML IV ONE (11:31)
[2023-02-20] MEDS ORDERED: albumin (Human) 5% 250ml 250 ML IV ONE (11:32)
[2023-02-20 11:59] LABS: BASOPHILS % (AUTO) 0.1 % (0-1); EOSINOPHILS % (AUTO) 0.3 % (0-6); HEMATOCRIT 24.4 % (35.0-45.0); HEMOGLOBIN 8.2 g/dl (12.0-16.0); LYMPHOCYTES # (AUTO) 0.8 X10'3 (1.1-4.8); LYMPHOCYTES % (AUTO) 10.4 % (21-51); MEAN CORPUSCULAR HEMOGLOBIN 29.5 PG (27.0-31.0); MEAN CORPUSCULAR HGB CONC 33.8 g/dL (33.0-36.5); MEAN CORPUSCULAR VOLUME 87.3 FL (78-98); MEAN PLATELET VOLUME 8.2 FL (7.4-10.4); MONOCYTES # (AUTO) 0.4 X10'3 (0-0.9); MONOCYTES % (AUTO) 5.2 % (2-12); NEUTROPHILS # (AUTO) 6.7 X10'3 (1.8-7.7); PLATELET COUNT 82 X10'3 (140-440); RED BLOOD COUNT 2.79 X10'6 (4.20-5.60); RED CELL DISTRIBUTION WIDTH 14.1 % (11.5-14.5)
[2023-02-20 12:20] LABS: APTT 28 SECONDS (22-32); FIBRINOGEN 188 MG/DL (177-424); INR 1.2 INR; PROTHROMBIN TIME 12.4 SECONDS (9.0-12.0)
[2023-02-20] MEDS ORDERED: albuterol 2.5 MG/3 ML nebule NEB PRN (12:20)
--- NOTE | 2023-02-20 12:30 | NUR ---
Received to room , accompanied by Carlo Torres and surgical crew. Placed on ventilator, to office assistance, arterial line and PA line pressure zeroed & monitored. Chest tubes to suction at 20 cm. Alberto cath to gravity drainage. Dressings are dry and intact. See assessment record. All vasoactive drugs are infusing via central line.
[2023-02-20 12:38] LABS: ABG BASE EXCESS -5.5 mmol/L (-2.0-2.0); ABG HCO3 18.8 mmol/L (22.0-26.0); ABG OXYGEN SATURATION 98.3 % (94-97); ABG PCO2 (T) 32.1 mmHg (32.0-45.0); ABG PH (T) 7.385 (7.350-7.450); ABG PO2 (T) 123.6 mmHg (75.0-100.0); FCOHb 0.3 % (0.0-3.9); FHHb 1.7 % (0.0-5.0); FMetHb 0.3 % (0.0-1.5); FO2Hb 97.7 % (94-97); MODE VENT - SIMV; PATIENT TEMPERATURE 36.7; PEEP 5 cm H2O; RESPIRATORY RATE 14 b/min; TIDAL VOLUME 500 mL; TOTAL HEMOGLOBIN 9.5 G/dl (12.0-16.0)
[2023-02-20] MEDS ORDERED: acetaminophen 325mg tablet PO PRN (12:45)
[2023-02-20] MEDS ORDERED: ondansetron/PF 4mg/2ml inj IV PRN (12:45)
[2023-02-20] MEDS ORDERED: potassium CL 10mEq/100ml bag 100 ML IV PRN (12:45)
[2023-02-20] MEDS ORDERED: magnesium 2GM in 50ml NS 50 ML IV PRN (12:45)
[2023-02-20] MEDS ORDERED: magnesium hydroxide 30ml (MOM) UD suspension PO PRN (12:45)
[2023-02-20] MEDS ORDERED: Neutra Phos packet PO PRN (12:45)
[2023-02-20] MEDS ORDERED: potassium Cl 40MEQ/1/2NS 520ml 520 ML IV PRN (12:45)
[2023-02-20] MEDS ORDERED: morphine 4 MG/ML inj SYRINge IV PRN (12:45)
[2023-02-20] MEDS ORDERED: niCARDipine-NS 40mg/200ml IVPB 200 ML IV PRN (12:45)
[2023-02-20] MEDS ORDERED: insulin glargine (Lantus) pen - multi-dose SQ PRN (12:45)
[2023-02-20] MEDS ORDERED: metoclopramide 5 mg/ml inj IV PRN (12:45)
[2023-02-20] MEDS ORDERED: sodium phosphate inj. 30 MMOL in dextrose 5%-water 250 ML IV PRN (12:45)
[2023-02-20] MEDS ORDERED: nitroGLYCERIN-Tridil 50MG/D5W 250 ML IV PRN (12:45)
[2023-02-20] MEDS ORDERED: bisacodyl 10mg suppository rectal RC PRN (12:45)
[2023-02-20] MEDS ORDERED: potassium Cl 20 mEq SR tablet PO PRN (12:45)
[2023-02-20] MEDS ORDERED: morphine 2 MG/ML inj. syringe IV PRN (12:45)
[2023-02-20] MEDS ORDERED: dextrose 50%-water 50ml dispensing syringe IV PRN (12:45)
[2023-02-20] MEDS ORDERED: mineral oil 133ml enema RC PRN (12:45)
[2023-02-20] MEDS ORDERED: potassium Cl 40MEQ/270ML bag 250 ML IV PRN (12:45)
[2023-02-20] MEDS ORDERED: sodium phosphate inj. 15 MMOL in dextrose 5%-water 250 ML IV PRN (12:45)
[2023-02-20] MEDS ORDERED: magnesium 4gm in 100ml NS 100 ML IV PRN (12:45)
--- NOTE | 2023-02-20 12:58 | NUR ---
Nutrition consult: Per EMR pt remains intubated s/p AVR and CABG x3 today. Most recent lipid panel in EMR from 12/26: CHOL 228, LDL 141; HDL and TG WNL. Pt would benefit from post CABG nutrition therapy education as appropriate following extubation. Will continue to follow. Addendum: 02/20/23 at [address] Amended: Links added.
[2023-02-20 13:03] LABS: BASOPHILS % (AUTO) 0.2 % (0-1); EOSINOPHILS % (AUTO) 0.4 % (0-6); HEMATOCRIT 25.9 % (35.0-45.0); HEMOGLOBIN 8.7 g/dl (12.0-16.0); LYMPHOCYTES # (AUTO) 0.5 X10'3 (1.1-4.8); MEAN CORPUSCULAR HEMOGLOBIN 29.3 PG (27.0-31.0); MEAN CORPUSCULAR HGB CONC 33.5 g/dL (33.0-36.5); MEAN CORPUSCULAR VOLUME 87.5 FL (78-98); MEAN PLATELET VOLUME 8.3 FL (7.4-10.4); MONOCYTES # (AUTO) 0.6 X10'3 (0-0.9); MONOCYTES % (AUTO) 6.5 % (2-12); NEUTROPHILS # (AUTO) 8.6 X10'3 (1.8-7.7); NEUTROPHILS % (AUTO) 87.9 % (42-75); PLATELET COUNT 97 X10'3 (140-440); RED BLOOD COUNT 2.96 X10'6 (4.20-5.60); RED CELL DISTRIBUTION WIDTH 14.3 % (11.5-14.5); WHITE BLOOD COUNT 9.8 X10'3 (4.5-11.0)
[2023-02-20 13:07] LABS: ALANINE AMINOTRANSFERASE 35 U/L (12-78); ALBUMIN/GLOBULIN RATIO 1.5 (1.1-1.5); ALKALINE PHOSPHATASE 63 IU/L (46-116); ANION GAP 10 (8-16); ASPARTATE AMINO TRANSFERASE 50 U/L (10-37); BILIRUBIN,TOTAL 0.4 MG/DL (0.1-1.0); BLOOD UREA NITROGEN 11 MG/DL (7-18); BUN/CREATININE RATIO 7.7 (10.0-20.0); CHLORIDE 103 MMOL/L (99-107); CREATININE 1.43 MG/DL (0.40-0.90); GLUCOSE 92 MG/DL (70-104); MAGNESIUM 3.3 MG/DL (1.5-2.4); PHOSPHORUS 2.6 MG/DL (2.3-4.5); POTASSIUM 3.4 MMOL/L (3.5-5.1); SODIUM 136 MMOL/L (135-145); TOTAL CARBON DIOXIDE 23.4 MMOL/L (24-32); eCRCL 29 ML/MIN; eGFR 35 ML/MIN
[2023-02-20] MEDS: sodium chloride 0.45% 1,000 ML IV SCH (13:17)
[2023-02-20] MEDS: gabapentin 300mg capsule PO SCH ×2 (13:18→19:35)
[2023-02-20] MEDS: albumin (Human) 5% 250ml 250 ML IV PRN ×2 (13:37→18:31)
[2023-02-20] MEDS: ceFAZolin/D5W- 1GM premix 50 ML IV SCH (15:54)
[2023-02-20] MEDS ORDERED: potassium Cl 2 mEq/ml inj IV ONE (18:00)
--- NOTE | 2023-02-20 18:07 | NUR ---
Problems reprioritized. Patient report given, questions answered & plan of care reviewed with REBECA Pierre.
[2023-02-20] MEDS: potassium Cl 20mEq/100mL bag 100 ML IV PRN ×2 (18:09→19:16)
--- NOTE | 2023-02-20 18:10 | NUR ---
Got report from Loi, all questions answered.
--- NOTE | 2023-02-20 18:20 | NUR ---
Dr. Whiteside OK with taking out PA line if hemodynamics stable, would like to leave in A line.
[2023-02-20 18:50] LABS: BASOPHILS % (AUTO) 0 % (0-1); EOSINOPHILS % (AUTO) 0.1 % (0-6); HEMATOCRIT 25.1 % (35.0-45.0); HEMOGLOBIN 8.3 g/dl (12.0-16.0); LYMPHOCYTES # (AUTO) 0.3 X10'3 (1.1-4.8); LYMPHOCYTES % (AUTO) 3.4 % (21-51); MEAN CORPUSCULAR HEMOGLOBIN 28.9 PG (27.0-31.0); MEAN CORPUSCULAR HGB CONC 33.1 g/dL (33.0-36.5); MEAN CORPUSCULAR VOLUME 87.3 FL (78-98); MEAN PLATELET VOLUME 8.8 FL (7.4-10.4); MONOCYTES # (AUTO) 0.3 X10'3 (0-0.9); MONOCYTES % (AUTO) 3.5 % (2-12); NEUTROPHILS # (AUTO) 8.9 X10'3 (1.8-7.7); PLATELET COUNT 105 X10'3 (140-440); RED BLOOD COUNT 2.88 X10'6 (4.20-5.60); RED CELL DISTRIBUTION WIDTH 14.2 % (11.5-14.5); WHITE BLOOD COUNT 9.6 X10'3 (4.5-11.0)
[2023-02-20 19:01] LABS: ALBUMIN 3.3 G/DL (3.4-5.0); ANION GAP 9 (8-16); BLOOD UREA NITROGEN 13 MG/DL (7-18); BUN/CREATININE RATIO 8.6 (10.0-20.0); CHLORIDE 105 MMOL/L (99-107); CREATININE 1.51 MG/DL (0.40-0.90); GLUCOSE 127 MG/DL (70-104); MAGNESIUM 2.6 MG/DL (1.5-2.4); PHOSPHORUS 2.9 MG/DL (2.3-4.5); POTASSIUM 3.9 MMOL/L (3.5-5.1); SODIUM 135 MMOL/L (135-145); TOTAL CARBON DIOXIDE 21.4 MMOL/L (24-32); eCRCL 27 ML/MIN; eGFR 33 ML/MIN
--- NOTE | 2023-02-20 19:25 | NUR ---
Dr. Matos OK with just using atrial pacing and allowing pt's own conduction system to work for her. Ventricular mA turned to 0
[2023-02-20] MEDS: atorvastatin 10mg tablet PO SCH (19:34)
[2023-02-20] MEDS: acetaminophen 325mg tablet PO PRN (19:35)
[2023-02-20] MEDS: sulfamethoxazole/trimethoprim DS (800/160mg) tablet PO SCH (19:35)
[2023-02-20] MEDS: sennosides/docusate sodium tablet PO SCH (19:36)
[2023-02-20] MEDS: mupirocin 2% nasal ointment 1gm UD NS SCH (19:36)
[2023-02-20] MEDS: vancomycin/NS 1 GM ADD-VANTAGE 250 ML IV SCH (19:36)
--- NOTE | 2023-02-20 19:42 | NUR ---
Pt doing well on spontaneous mode on ventilator but still extremely groggy. Cannot keep eyes open or lift head off bed.
--- NOTE | 2023-02-20 20:50 | NUR ---
Updated Dr. Matos on pt status for the night. She is doing well on SPONT mode but extremely drowsy still, does nod yes/no appropriately and follows command. However, she cannot stay awake or lift her head off the bed. in this regard he said to not brody to extubate her, will continue to assess for appropriatness of extubation. He is OK with her getting her PA line pulled despite being intubated and paced, will do this. Reviewed her Randa BP and NIBP being different, he said he didn't really care which we trended but he prefers the A line. All other care reviewed.
[2023-02-21] VITALS (35 sets, daily range): BP systolic 111–144; BP diastolic 48–78; PULSE 79–80; RESP 12–26; O2SAT 89–99
[2023-02-21] MEDS: ceFAZolin/D5W- 1GM premix 50 ML IV SCH ×4 (00:03→23:54)
[2023-02-21] MEDS: HYDROcodone/acetaminophen 10/325mg tab PO PRN ×5 (00:34→20:12)
[2023-02-21 00:59] LABS: ABG BASE EXCESS -4.5 mmol/L (-2.0-2.0); ABG HCO3 20.1 mmol/L (22.0-26.0); ABG OXYGEN SATURATION 93.1 % (94-97); ABG PCO2 (T) 34.6 mmHg (32.0-45.0); ABG PH (T) 7.381 (7.350-7.450); ABG PO2 (T) 65.9 mmHg (75.0-100.0); FCOHb 0.4 % (0.0-3.9); FHHb 6.9 % (0.0-5.0); FMetHb 0.3 % (0.0-1.5); FO2Hb 92.4 % (94-97); MODE spont 10/5; TOTAL HEMOGLOBIN 8.1 G/dl (12.0-16.0)
--- NOTE | 2023-02-21 01:14 | NUR ---
Extubated at 0105.
[2023-02-21 01:17] LABS: BASOPHILS % (AUTO) 0.1 % (0-1); EOSINOPHILS % (AUTO) 0 % (0-6); HEMATOCRIT 23.2 % (35.0-45.0); HEMOGLOBIN 7.8 g/dl (12.0-16.0); LYMPHOCYTES # (AUTO) 0.6 X10'3 (1.1-4.8); MEAN CORPUSCULAR HEMOGLOBIN 29.3 PG (27.0-31.0); MEAN CORPUSCULAR HGB CONC 33.5 g/dL (33.0-36.5); MEAN CORPUSCULAR VOLUME 87.6 FL (78-98); MEAN PLATELET VOLUME 8.6 FL (7.4-10.4); MONOCYTES # (AUTO) 0.4 X10'3 (0-0.9); MONOCYTES % (AUTO) 3.9 % (2-12); NEUTROPHILS # (AUTO) 8.2 X10'3 (1.8-7.7); PLATELET COUNT 105 X10'3 (140-440); RED BLOOD COUNT 2.65 X10'6 (4.20-5.60); RED CELL DISTRIBUTION WIDTH 14.3 % (11.5-14.5); WHITE BLOOD COUNT 9.2 X10'3 (4.5-11.0)
[2023-02-21 01:30] LABS: APTT 27 SECONDS (22-32); INR 1.1 INR; PROTHROMBIN TIME 11.3 SECONDS (9.0-12.0)
[2023-02-21 01:32] LABS: ALANINE AMINOTRANSFERASE 29 U/L (12-78); ALBUMIN 3.3 G/DL (3.4-5.0); ALBUMIN/GLOBULIN RATIO 1.8 (1.1-1.5); ALKALINE PHOSPHATASE 63 IU/L (46-116); ANION GAP 8 (8-16); ASPARTATE AMINO TRANSFERASE 42 U/L (10-37); BILIRUBIN,TOTAL 0.3 MG/DL (0.1-1.0); BLOOD UREA NITROGEN 14 MG/DL (7-18); BUN/CREATININE RATIO 9.8 (10.0-20.0); CALCIUM 8.1 MG/DL (8.5-10.1); CHLORIDE 106 MMOL/L (99-107); CREATININE 1.43 MG/DL (0.40-0.90); GLUCOSE 125 MG/DL (70-104); MAGNESIUM 2.4 MG/DL (1.5-2.4); PHOSPHORUS 3.8 MG/DL (2.3-4.5); POTASSIUM 4.1 MMOL/L (3.5-5.1); SODIUM 136 MMOL/L (135-145); TOTAL CARBON DIOXIDE 21.8 MMOL/L (24-32); TOTAL PROTEIN 5.1 G/DL (6.4-8.2); eCRCL 29 ML/MIN; eGFR 35 ML/MIN
[2023-02-21] MEDS: potassium Cl 20mEq/100mL bag 100 ML IV PRN ×2 (01:42→03:16)
--- NOTE | 2023-02-21 06:00 | NUR ---
Gave report to Paris. All questions answered.
[2023-02-21] MEDS ORDERED: metoprolol tartrate 12.5mg (1/2 tablet) PO SCH (08:00)
[2023-02-21] MEDS: mupirocin 2% nasal ointment 1gm UD NS SCH ×2 (08:55→20:12)
[2023-02-21] MEDS: aspirin 81mg tab.chew PO SCH (08:55)
[2023-02-21] MEDS: gabapentin 300mg capsule PO SCH (08:55)
[2023-02-21] MEDS: sennosides/docusate sodium tablet PO SCH ×2 (08:56→20:11)
[2023-02-21] MEDS: sulfamethoxazole/trimethoprim DS (800/160mg) tablet PO SCH ×2 (09:03→20:12)
[2023-02-21] MEDS: vancomycin/NS 1 GM ADD-VANTAGE 250 ML IV SCH ×2 (09:04→20:11)
--- NOTE | 2023-02-21 18:00 | NUR ---
Got report from cyn. All questions answered. Per report Pt continues to be extremely weak, only dangled for a short time, did not stand or get to chair. FiO2 able to be titrated down some during the day.
--- NOTE | 2023-02-21 19:27 | NUR ---
Dangled pt at bedside and worked on IS in sitting position. Attempted to stand but patient did not tolerate well with 2 person assist. Still extremely weak, would not be able to make it to chair or walk. Pt was placed back in bed with no issues but heavily encouraged to increase use of IS/Flutter Valve and reminded that she will need to get up and increase mobility.
[2023-02-21] MEDS: atorvastatin 10mg tablet PO SCH (20:11)
[2023-02-22] VITALS (27 sets, daily range): BP systolic 90–151; BP diastolic 51–105; PULSE 60–110; RESP 16–35; TEMP 98–98.8; O2SAT 90–96
[2023-02-22] MEDS: HYDROcodone/acetaminophen 10/325mg tab PO PRN (03:17)
[2023-02-22] MEDS ORDERED: metoprolol tartrate 12.5mg (1/2 tablet) PO STA (03:23)
--- NOTE | 2023-02-22 03:24 | NUR ---
Notified Dr. Matos the pt has been bouncing around from HR of 90s-110s, still in SR though. Ok to give Metoprolol now and make it BID, if she does go into Afib OK to start jeimy stevenson.
--- NOTE | 2023-02-22 05:50 | NUR ---
Pt remained stable t/o the night. Respiratory west she is on roughly the same amount of FiO2 as start of shift, I did try multiple times to work with her on her IS and flutter valve but her attempts at these remain rather lackluster, but she is trying. Cardiac west she has been in a SR with some pauses or slowing occasionally, also going up to 110s at times, always with P waves. MD was notified and beta radha was started for the tachycardia. Her pacemaker rate was turned down to a back up rate of 40 as her [place] rate as, on average, been around 80. no other real issues. Pushed pulmonary toilet, mobility and nutrition t/o the night.
[2023-02-22 06:40] LABS: BASOPHILS % (AUTO) 0.1 % (0-1); EOSINOPHILS % (AUTO) 0 % (0-6); HEMATOCRIT 25.4 % (35.0-45.0); HEMOGLOBIN 8.3 g/dl (12.0-16.0); LYMPHOCYTES # (AUTO) 1.1 X10'3 (1.1-4.8); LYMPHOCYTES % (AUTO) 5.8 % (21-51); MEAN CORPUSCULAR HGB CONC 32.7 g/dL (33.0-36.5); MEAN CORPUSCULAR VOLUME 88.6 FL (78-98); MEAN PLATELET VOLUME 9.7 FL (7.4-10.4); MONOCYTES # (AUTO) 2.4 X10'3 (0-0.9); MONOCYTES % (AUTO) 12.3 % (2-12); NEUTROPHILS % (AUTO) 81.8 % (42-75); PLATELET COUNT 130 X10'3 (140-440); RED BLOOD COUNT 2.87 X10'6 (4.20-5.60); WHITE BLOOD COUNT 19.5 X10'3 (4.5-11.0)
[2023-02-22 06:52] LABS: ALBUMIN 2.9 G/DL (3.4-5.0); ANION GAP 6 (8-16); BLOOD UREA NITROGEN 27 MG/DL (7-18); BUN/CREATININE RATIO 16.5 (10.0-20.0); CALCIUM 8.2 MG/DL (8.5-10.1); CHLORIDE 101 MMOL/L (99-107); CREATININE 1.64 MG/DL (0.40-0.90); GLUCOSE 155 MG/DL (70-104); MAGNESIUM 2.3 MG/DL (1.5-2.4); PHOSPHORUS 3.9 MG/DL (2.3-4.5); POTASSIUM 5.4 MMOL/L (3.5-5.1); SODIUM 129 MMOL/L (135-145); TOTAL CARBON DIOXIDE 21.9 MMOL/L (24-32); eCRCL 25 ML/MIN; eGFR 30 ML/MIN
[2023-02-22 07:18] LABS: TOTAL CELLS COUNTED 100
[2023-02-22 07:22] LABS: PLATELET ESTIMATE DECREASED; POIKILOCYTOSIS FEW; POLYCHROMASIA FEW
[2023-02-22] MEDS ORDERED: furosemide 40mg/4ml inj IV ONE (08:10)
[2023-02-22] MEDS: mupirocin 2% nasal ointment 1gm UD NS SCH (08:34)
[2023-02-22 09:53] LABS: ABG BASE EXCESS -4.7 mmol/L (-2.0-2.0); ABG OXYGEN SATURATION 93.7 % (94-97); ABG PCO2 (T) 30.1 mmHg (32.0-45.0); ABG PH (T) 7.418 (7.350-7.450); ABG PO2 (T) 64.4 mmHg (75.0-100.0); ALLEN'S TEST POSITIVE; FCOHb 0.4 % (0.0-3.9); FHHb 6.3 % (0.0-5.0); FLOW 4 L/min; FMetHb 0.3 % (0.0-1.5); MODE NC
[2023-02-22] MEDS: pantoprazole 40mg Tablet.DR PO SCH (10:42)
[2023-02-22] MEDS: sennosides/docusate sodium tablet PO SCH ×2 (10:46→19:36)
[2023-02-22] MEDS: metoprolol tartrate 12.5mg (1/2 tablet) PO SCH ×2 (10:46→19:36)
[2023-02-22] MEDS: aspirin 81mg tab.chew PO SCH (10:46)
[2023-02-22] MEDS: sulfamethoxazole/trimethoprim DS (800/160mg) tablet PO SCH ×2 (10:46→19:35)
[2023-02-22] MEDS: sodium chloride 0.45% 1,000 ML IV SCH ×2 (12:45→20:51)
[2023-02-22] MEDS: acetaminophen 325mg tablet PO PRN ×2 (14:18→20:28)
--- NOTE | 2023-02-22 18:30 | NUR ---
Patient in room CICU 2013. I have received report from Marcio Aguirre RN and had the opportunity to ask questions and assume patient care. Dr. Matos at bedside to assess patient, orders received.
[2023-02-22] MEDS: atorvastatin 10mg tablet PO SCH (19:36)
[2023-02-22] MEDS: caffeine citrate injection 60 MG in dextrose 5%-water 50ml 50 ML IV SCH (19:41)
--- NOTE | 2023-02-22 20:00 | NUR ---
bed bath given and tolerated fairly well, oral care as well as haynes care provided, two person assist to reposition and turn, linen change and coccyx check done.
--- NOTE | 2023-02-22 20:40 | NUR ---
BIPAP placed on patient for NOC as ordered by Dr. Matos, patient medicated with Tylenol 650mg PO for generalized ache "3" on pain scale 1-10.
--- NOTE | 2023-02-22 23:00 | NUR ---
Problems reprioritized. Patient report given, questions answered & plan of care reviewed with Ignacio Spaulding RN.
--- NOTE | 2023-02-22 23:00 | NUR ---
Got report from Timothy, all questions answered.
[2023-02-23] VITALS (27 sets, daily range): BP systolic 100–133; BP diastolic 67–87; PULSE 83–125; RESP 18–35; O2SAT 91–97
[2023-02-23] MEDS: acetaminophen 325mg tablet PO PRN ×2 (03:12→19:54)
--- NOTE | 2023-02-23 06:00 | NUR ---
Problems reprioritized. Patient report given, questions answered & plan of care reviewed with Ab.
[2023-02-23 06:16] LABS: ABG BASE EXCESS 2.4 mmol/L (-2.0-2.0); ABG HCO3 25.3 mmol/L (22.0-26.0); ABG OXYGEN SATURATION 97.1 % (94-97); ABG PO2 (T) 86.9 mmHg (75.0-100.0); ALLEN'S TEST POSITIVE; FHHb 2.9 % (0.0-5.0); FMetHb 0.1 % (0.0-1.5); MODE ROOM AIR; TOTAL HEMOGLOBIN 13.7 G/dl (12.0-16.0)
[2023-02-23 06:18] LABS: ACT @ 1.70 U 255 SEC (193-297); ACT @ 2.84 U 386 SEC (260-420); BASELINE ACT 131 SEC (101-148); PATIENT WEIGHT 85.0k KG
--- NOTE | 2023-02-23 06:31 | NUR ---
Patient in room CICU 2013. I have received report from Ignacio JOSE and had the opportunity to ask questions and assume patient care.
[2023-02-23 06:44] LABS: ALBUMIN 2.7 G/DL (3.4-5.0); ANION GAP 5 (8-16); BLOOD UREA NITROGEN 30 MG/DL (7-18); CALCIUM 8.4 MG/DL (8.5-10.1); CHLORIDE 102 MMOL/L (99-107); GLUCOSE 131 MG/DL (70-104); MAGNESIUM 2.2 MG/DL (1.5-2.4); PHOSPHORUS 2.7 MG/DL (2.3-4.5); POTASSIUM 4.5 MMOL/L (3.5-5.1); SODIUM 132 MMOL/L (135-145); TOTAL CARBON DIOXIDE 24.9 MMOL/L (24-32); eCRCL 27 ML/MIN; eGFR 33 ML/MIN
[2023-02-23 06:47] LABS: BASOPHILS % (AUTO) 0.1 % (0-1); EOSINOPHILS % (AUTO) 0 % (0-6); HEMATOCRIT 25.2 % (35.0-45.0); HEMOGLOBIN 8.4 g/dl (12.0-16.0); LYMPHOCYTES # (AUTO) 1.5 X10'3 (1.1-4.8); LYMPHOCYTES % (AUTO) 10.7 % (21-51); MEAN CORPUSCULAR HEMOGLOBIN 29.2 PG (27.0-31.0); MEAN CORPUSCULAR HGB CONC 33.3 g/dL (33.0-36.5); MEAN CORPUSCULAR VOLUME 87.7 FL (78-98); MEAN PLATELET VOLUME 9.4 FL (7.4-10.4); MONOCYTES # (AUTO) 2.2 X10'3 (0-0.9); MONOCYTES % (AUTO) 15.7 % (2-12); NEUTROPHILS # (AUTO) 10.3 X10'3 (1.8-7.7); NEUTROPHILS % (AUTO) 73.5 % (42-75); PLATELET COUNT 123 X10'3 (140-440); RED BLOOD COUNT 2.87 X10'6 (4.20-5.60); RED CELL DISTRIBUTION WIDTH 14.6 % (11.5-14.5)
[2023-02-23] MEDS: aspirin 81mg tab.chew PO SCH (08:49)
[2023-02-23] MEDS: pantoprazole 40mg Tablet.DR PO SCH (08:49)
[2023-02-23] MEDS: sulfamethoxazole/trimethoprim DS (800/160mg) tablet PO SCH ×2 (08:49→19:54)
[2023-02-23] MEDS: caffeine citrate injection 60 MG in dextrose 5%-water 50ml 50 ML IV SCH ×2 (08:49→19:53)
[2023-02-23] MEDS: sennosides/docusate sodium tablet PO SCH ×2 (08:50→19:54)
[2023-02-23] MEDS: metoprolol tartrate 12.5mg (1/2 tablet) PO SCH ×2 (08:51→19:54)
[2023-02-23 09:16] LABS: TOTAL CELLS COUNTED 100
[2023-02-23 09:17] LABS: GIANT PLATELET FEW; HYPERSEGMENTED NEUTROPHILS 1+; PLATELET ESTIMATE DECREASED
[2023-02-23 11:57] LABS: ABG BASE EXCESS -1.7 mmol/L (-2.0-2.0); ABG HCO3 22.5 mmol/L (22.0-26.0); ABG OXYGEN SATURATION 95.6 % (94-97); ABG PCO2 35.9 mmHg (32.0-45.0); ABG PH 7.414 (7.350-7.450); ABG PO2 76.1 mmHg (75.0-100.0); CL (ABG) 101 mmol/L (99-107); FCOHb 0.3 % (0.0-3.9); FHHb 4.4 % (0.0-5.0); FMetHb 0.3 % (0.0-1.5); GLUCOSE (ABG) 108 mg/dl (70-104); IONIZED CA (ABG) 1.13 mmol/L (1.10-1.30); K (ABG) 3.7 mmol/L (3.5-5.1); TOTAL HEMOGLOBIN 11.7 G/dl (12.0-16.0)
[2023-02-23 11:58] LABS: ABG BASE EXCESS -2.1 mmol/L (-2.0-2.0); ABG HCO3 22.7 mmol/L (22.0-26.0); ABG OXYGEN SATURATION 99.1 % (94-97); ABG PCO2 38.8 mmHg (32.0-45.0); ABG PH 7.385 (7.350-7.450); ABG PO2 316.1 mmHg (75.0-100.0); CL (ABG) 101 mmol/L (99-107); FCOHb 0.3 % (0.0-3.9); FHHb 0.9 % (0.0-5.0); FMetHb 0.3 % (0.0-1.5); FO2Hb 98.5 % (94-97); GLUCOSE (ABG) 121 mg/dl (70-104); IONIZED CA (ABG) 1.11 mmol/L (1.10-1.30); K (ABG) 3.5 mmol/L (3.5-5.1)
[2023-02-23 11:58] LABS: ABG BASE EXCESS -4.2 mmol/L (-2.0-2.0); ABG HCO3 20.4 mmol/L (22.0-26.0); ABG OXYGEN SATURATION 99.1 % (94-97); ABG PCO2 35.2 mmHg (32.0-45.0); ABG PH 7.382 (7.350-7.450); ABG PO2 496.2 mmHg (75.0-100.0); CL (ABG) 99 mmol/L (99-107); FCOHb 0.2 % (0.0-3.9); FHHb 0.9 % (0.0-5.0); FMetHb 0.3 % (0.0-1.5); FO2Hb 98.6 % (94-97); GLUCOSE (ABG) 114 mg/dl (70-104); IONIZED CA (ABG) 0.98 mmol/L (1.10-1.30); K (ABG) 3.4 mmol/L (3.5-5.1); TOTAL HEMOGLOBIN 8.3 G/dl (12.0-16.0)
[2023-02-23 11:59] LABS: ABG BASE EXCESS -5.5 mmol/L (-2.0-2.0); ABG OXYGEN SATURATION 99.1 % (94-97); ABG PCO2 38.8 mmHg (32.0-45.0); CL (ABG) 101 mmol/L (99-107); FCOHb 0.3 % (0.0-3.9); FHHb 0.9 % (0.0-5.0); FMetHb 0.3 % (0.0-1.5); FO2Hb 98.5 % (94-97); GLUCOSE (ABG) 118 mg/dl (70-104); IONIZED CA (ABG) 1.05 mmol/L (1.10-1.30); TOTAL HEMOGLOBIN 8.6 G/dl (12.0-16.0)
[2023-02-23 12:00] LABS: ABG BASE EXCESS -5.9 mmol/L (-2.0-2.0); ABG HCO3 19.8 mmol/L (22.0-26.0); ABG OXYGEN SATURATION 99.2 % (94-97); ABG PCO2 39.7 mmHg (32.0-45.0); ABG PH 7.315 (7.350-7.450); ABG PO2 356.8 mmHg (75.0-100.0); CL (ABG) 101 mmol/L (99-107); FCOHb 0.3 % (0.0-3.9); FHHb 0.8 % (0.0-5.0); FMetHb 0.3 % (0.0-1.5); FO2Hb 98.6 % (94-97); GLUCOSE (ABG) 113 mg/dl (70-104); IONIZED CA (ABG) 1.05 mmol/L (1.10-1.30); K (ABG) 3.4 mmol/L (3.5-5.1); TOTAL HEMOGLOBIN 8.7 G/dl (12.0-16.0)
[2023-02-23 12:00] LABS: ABG BASE EXCESS -3.6 mmol/L (-2.0-2.0); ABG HCO3 21.3 mmol/L (22.0-26.0); ABG OXYGEN SATURATION 99.2 % (94-97); ABG PCO2 37.4 mmHg (32.0-45.0); ABG PH 7.373 (7.350-7.450); ABG PO2 474.3 mmHg (75.0-100.0); CL (ABG) 102 mmol/L (99-107); FCOHb 0.3 % (0.0-3.9); FHHb 0.8 % (0.0-5.0); FMetHb 0.3 % (0.0-1.5); FO2Hb 98.6 % (94-97); GLUCOSE (ABG) 106 mg/dl (70-104); IONIZED CA (ABG) 1.11 mmol/L (1.10-1.30); K (ABG) 3.4 mmol/L (3.5-5.1); TOTAL HEMOGLOBIN 7.8 G/dl (12.0-16.0)
--- NOTE | 2023-02-23 18:00 | NUR ---
Patient in room CICU 2013. I have received report from Ab and had the opportunity to ask questions and assume patient care.
--- NOTE | 2023-02-23 18:15 | NUR ---
Problems reprioritized. Patient report given, questions answered & plan of care reviewed with Ignacio JOSE.
--- NOTE | 2023-02-23 19:08 | NUR ---
Pt got back to bed with sit to stand and 3 RNs. Had to be constantly reminded of sternal precautions but other than that transferred without issue.
[2023-02-23] MEDS: atorvastatin 10mg tablet PO SCH (19:54)
[2023-02-23] MEDS ORDERED: metoprolol tartrate 12.5mg (1/2 tablet) PO SCH (20:00)
--- NOTE | 2023-02-23 22:05 | NUR ---
Attempted to call Dr. Kennedy regarding HR 120s and sustained (still sinus). No answer, left text per his voicemail and also called answering service who stated they paged him.
[2023-02-23] MEDS: HYDROcodone/acetaminophen 5mg/325mg tablet PO PRN (22:42)
[2023-02-24] VITALS (20 sets, daily range): BP systolic 109–137; BP diastolic 47–86; PULSE 81–104; RESP 13–30; TEMP 98.1; O2SAT 90–99
--- NOTE | 2023-02-24 01:54 | NUR ---
Dr. Kennedy called back, however, in the last 4 hours the pt's heart rate has settled down so no new orders
[2023-02-24] MEDS: HYDROcodone/acetaminophen 5mg/325mg tablet PO PRN ×3 (05:37→19:57)
[2023-02-24 06:07] LABS: BASOPHILS % (AUTO) 0.1 % (0-1); EOSINOPHILS # (AUTO) 0.1 X10'3 (0-0.9); EOSINOPHILS % (AUTO) 0.5 % (0-6); HEMATOCRIT 25.7 % (35.0-45.0); HEMOGLOBIN 8.3 g/dl (12.0-16.0); LYMPHOCYTES # (AUTO) 1.9 X10'3 (1.1-4.8); LYMPHOCYTES % (AUTO) 15.7 % (21-51); MEAN CORPUSCULAR HEMOGLOBIN 28.7 PG (27.0-31.0); MEAN CORPUSCULAR HGB CONC 32.5 g/dL (33.0-36.5); MEAN CORPUSCULAR VOLUME 88.4 FL (78-98); MEAN PLATELET VOLUME 9.1 FL (7.4-10.4); MONOCYTES # (AUTO) 1.9 X10'3 (0-0.9); MONOCYTES % (AUTO) 15.5 % (2-12); NEUTROPHILS # (AUTO) 8.5 X10'3 (1.8-7.7); NEUTROPHILS % (AUTO) 68.2 % (42-75); PLATELET COUNT 172 X10'3 (140-440); RED CELL DISTRIBUTION WIDTH 14.4 % (11.5-14.5); WHITE BLOOD COUNT 12.4 X10'3 (4.5-11.0)
--- NOTE | 2023-02-24 06:11 | NUR ---
Problems reprioritized. Patient report given, questions answered & plan of care reviewed with
[2023-02-24 06:26] LABS: ALBUMIN 2.7 G/DL (3.4-5.0); ANION GAP 6 (8-16); BLOOD UREA NITROGEN 30 MG/DL (7-18); BUN/CREATININE RATIO 20.3 (10.0-20.0); CALCIUM 8.7 MG/DL (8.5-10.1); CHLORIDE 103 MMOL/L (99-107); CREATININE 1.48 MG/DL (0.40-0.90); GLUCOSE 113 MG/DL (70-104); MAGNESIUM 2.1 MG/DL (1.5-2.4); PHOSPHORUS 2.7 MG/DL (2.3-4.5); POTASSIUM 4.3 MMOL/L (3.5-5.1); SODIUM 135 MMOL/L (135-145); TOTAL CARBON DIOXIDE 26.1 MMOL/L (24-32); eCRCL 28 ML/MIN; eGFR 34 ML/MIN
--- NOTE | 2023-02-24 06:30 | NUR ---
Patient in room CICU 2013. I have received report from Ignacio JOSE and had the opportunity to ask questions and assume patient care.
[2023-02-24] MEDS: caffeine citrate injection 60 MG in dextrose 5%-water 50ml 50 ML IV SCH ×2 (07:40→19:56)
[2023-02-24] MEDS: aspirin 81mg tab.chew PO SCH (07:44)
[2023-02-24] MEDS: sennosides/docusate sodium tablet PO SCH ×2 (07:44→19:57)
[2023-02-24] MEDS: sulfamethoxazole/trimethoprim DS (800/160mg) tablet PO SCH (07:44)
[2023-02-24] MEDS: pantoprazole 40mg Tablet.DR PO SCH (07:45)
[2023-02-24] MEDS: metoprolol tartrate 12.5mg (1/2 tablet) PO SCH ×2 (07:45→19:57)
--- NOTE | 2023-02-24 08:35 | NUR ---
Fam Call Son called to check on pts condition. Update provided and his concern about her pain was addressed. Pt stated pain level was 3 and she was good with that. More awake for breakfast and fed her self.
[2023-02-24] MEDS ORDERED: magnesium 4gm in 100ml NS 100 ML IV PRN (08:50)
[2023-02-24] MEDS ORDERED: potassium CL 10mEq/100ml bag 100 ML IV PRN (08:50)
[2023-02-24] MEDS ORDERED: magnesium 2GM in 50ml NS 50 ML IV PRN (08:50)
[2023-02-24] MEDS ORDERED: potassium Cl 20mEq/100mL bag 100 ML IV PRN (08:50)
[2023-02-24] MEDS ORDERED: potassium Cl 40MEQ/270ML bag 250 ML IV PRN (08:50)
[2023-02-24] MEDS ORDERED: potassium Cl 40MEQ/1/2NS 520ml 520 ML IV PRN (08:50)
[2023-02-24] MEDS ORDERED: potassium Cl 20 mEq SR tablet PO PRN ×2 (08:50)
--- NOTE | 2023-02-24 10:34 | NUR ---
Nutrition Consult: Pt post-op day 4 sp/ CABG and AVR per EMR. PO ~38% initial meals remains sleepy though more alert this AM per EMR. Pt seen by RD at bedside for written/verbal heart healthy/high protein diet eds w/ RD contact information provided. Pt reports low intake w/ lethargy is also a vegetarian mostly at home eats eggs but doesn't drink milk requests almond milk TIDWM-dietary notified. Pt is agreeable to Ensure Enlive TIDWM to assist meeting needs; PA notified and ONS now active in EMR. Pt reports takes vitamin D at home does have protein bars stocked at home as well after discharge. RD encouraged pt to contact dietitian's office if further nutrition questions/concerns. Rec: 1. continue NCS/vegetarian diet per MD order and pt preferences; almond milk TIDWM still eats eggs 2. Ensure Enlive TIDWM; encourage PO meals/ONS Addendum: 02/24/23 at [address] Amended: Links added.
--- NOTE | 2023-02-24 11:15 | NUR ---
CT Pt ambulated with PT x 2. HR < 100, BP good with ambulation. Refer to PT notes. Pt back to bed & then transported in bed for CT scanner. Tolerated CT well. Back to room in bed to rest until lunch. Addendum: 02/24/23 at 1617 by Isaiah Rondon RN PT, Deisi, stated nursing should not try to walk this pt due to her PT needs at this time.
[2023-02-24] MEDS ORDERED: lactose-reduced food (Ensure Enlive) - 237ml bottle PO SCH (13:00)
[2023-02-24] MEDS: lactose-reduced food (Ensure Enlive) - 237ml bottle PO SCH ×2 (13:00→18:10)
[2023-02-24] MEDS: tamsulosin 0.4mg capsule PO SCH (13:12)
--- NOTE | 2023-02-24 13:15 | NUR ---
Lunch Pt out of bed for lunch x 2 staff after about 1.5 hrs in bed and then needed to be moved to commode. Pt had a large BM, was cleaned, stood again to sit in recliner x 2 staff RNs. Pt sat for lunch and was mostly independent for feeding. Moving is somewhat better. Pt stands well but doesn't stand up straight due to chronic back issues.
--- NOTE | 2023-02-24 15:15 | NUR ---
To bed Pt asking to lie down in bed. Assisted to bed x 2 staff. Positioned to comfort on left. C/o pain at back, shoulders and a little at her chest - 11/01. Pain med provided.
--- NOTE | 2023-02-24 18:00 | NUR ---
Patient in room CICU 2013. I have received report from Isaiah and had the opportunity to ask questions and assume patient care.
[2023-02-24] MEDS: atorvastatin 10mg tablet PO SCH (19:56)
[2023-02-24] MEDS: magnesium Cl slow-release 64mg tablet PO SCH (19:56)
[2023-02-24] MEDS ORDERED: ketorolac trometh. 30mg/ml inj. IV ONE (20:55)
--- NOTE | 2023-02-24 22:48 | NUR ---
Transferred to room 3021. No belongings in room. Moved to bed with no issues. Pacer box taken as pt still has wires but not hooked up.
[2023-02-25] VITALS (27 sets, daily range): BP systolic 96–147; BP diastolic 51–76; PULSE 65–132; RESP 10–29; TEMP 97.4–98.4; O2SAT 65–96
[2023-02-25] MEDS ORDERED: amiodarone 150mg/dext, iso-os 100 ML IV ONE (05:20)
--- NOTE | 2023-02-25 05:35 | NUR ---
Dr Kennedy notified of pt going into A.fib per television and radio repairer report, with sustained heart rate in the 130s to the 140s . New order is to start pt on amiodarone drip per protocol and BMP lab.
[2023-02-25] MEDS: amiodarone/D5 360MG/200ML BAG 200 ML IV SCH ×4 (05:41→23:59)
--- NOTE | 2023-02-25 06:35 | NUR ---
Patient in room U 3021. I have received report from aHttie and had the opportunity to ask questions and assume patient care. Addendum: 02/25/23 at 0635 by Moe Klein RN Amended: Links added.
--- NOTE | 2023-02-25 06:36 | NUR ---
Problems reprioritized. Patient report given, questions answered & plan of care reviewed with Moe
[2023-02-25] MEDS: tamsulosin 0.4mg capsule PO SCH (07:28)
[2023-02-25] MEDS: pantoprazole 40mg Tablet.DR PO SCH (07:29)
[2023-02-25] MEDS: sennosides/docusate sodium tablet PO SCH ×2 (07:29→21:29)
[2023-02-25] MEDS: magnesium Cl slow-release 64mg tablet PO SCH ×2 (07:29→21:32)
[2023-02-25] MEDS: metoprolol tartrate 12.5mg (1/2 tablet) PO SCH ×2 (07:29→21:33)
[2023-02-25 07:30] LABS: BASOPHILS % (AUTO) 0.3 % (0-1); EOSINOPHILS # (AUTO) 0.1 X10'3 (0-0.9); EOSINOPHILS % (AUTO) 0.7 % (0-6); HEMATOCRIT 25.6 % (35.0-45.0); HEMOGLOBIN 8.6 g/dl (12.0-16.0); LYMPHOCYTES # (AUTO) 1.4 X10'3 (1.1-4.8); LYMPHOCYTES % (AUTO) 12.7 % (21-51); MEAN CORPUSCULAR HEMOGLOBIN 29.5 PG (27.0-31.0); MEAN CORPUSCULAR HGB CONC 33.5 g/dL (33.0-36.5); MEAN CORPUSCULAR VOLUME 88.3 FL (78-98); MEAN PLATELET VOLUME 8.3 FL (7.4-10.4); MONOCYTES # (AUTO) 1.4 X10'3 (0-0.9); MONOCYTES % (AUTO) 12.8 % (2-12); NEUTROPHILS # (AUTO) 7.8 X10'3 (1.8-7.7); NEUTROPHILS % (AUTO) 73.5 % (42-75); PLATELET COUNT 194 X10'3 (140-440); RED CELL DISTRIBUTION WIDTH 14.4 % (11.5-14.5); WHITE BLOOD COUNT 10.6 X10'3 (4.5-11.0)
[2023-02-25] MEDS: aspirin 81mg tab.chew PO SCH (07:30)
[2023-02-25] MEDS: caffeine citrate injection 60 MG in dextrose 5%-water 50ml 50 ML IV SCH ×2 (07:36→21:27)
[2023-02-25 07:53] LABS: ALBUMIN 2.6 G/DL (3.4-5.0); ANION GAP 8 (8-16); BLOOD UREA NITROGEN 27 MG/DL (7-18); BUN/CREATININE RATIO 21.4 (10.0-20.0); CALCIUM 8.9 MG/DL (8.5-10.1); CHLORIDE 104 MMOL/L (99-107); CREATININE 1.26 MG/DL (0.40-0.90); GLUCOSE 138 MG/DL (70-104); POTASSIUM 4.2 MMOL/L (3.5-5.1); SODIUM 135 MMOL/L (135-145); TOTAL CARBON DIOXIDE 23.5 MMOL/L (24-32); eCRCL 33 ML/MIN; eGFR 41 ML/MIN
[2023-02-25] MEDS: lactose-reduced food (Ensure Enlive) - 237ml bottle PO SCH ×3 (08:39→18:00)
[2023-02-25] MEDS ORDERED: ondansetron 4mg rapidly disintigrating tab PO PRN (14:00)
--- NOTE | 2023-02-25 18:32 | NUR ---
Problems reprioritized. Patient report given, questions answered & plan of care reviewed with Hattie. Addendum: 02/25/23 at 1833 by Moe Klein RN Amended: Links added.
[2023-02-25] MEDS: atorvastatin 10mg tablet PO SCH (21:32)
[2023-02-25] MEDS: HYDROcodone/acetaminophen 5mg/325mg tablet PO PRN (23:58)
[2023-02-26] VITALS (11 sets, daily range): BP systolic 96–143; BP diastolic 59–82; PULSE 83–93; RESP 16–30; TEMP 97.6–98.5; O2SAT 93–99
[2023-02-26] MEDS: amiodarone/D5 360MG/200ML BAG 200 ML IV SCH ×2 (05:36→11:40)
--- NOTE | 2023-02-26 06:43 | NUR ---
Problems reprioritized. Patient report given, questions answered & plan of care reviewed with Gregoria.
[2023-02-26 06:57] LABS: BASOPHILS % (AUTO) 0.4 % (0-1); EOSINOPHILS # (AUTO) 0.3 X10'3 (0-0.9); EOSINOPHILS % (AUTO) 2.3 % (0-6); HEMATOCRIT 26.4 % (35.0-45.0); HEMOGLOBIN 8.6 g/dl (12.0-16.0); LYMPHOCYTES # (AUTO) 1.8 X10'3 (1.1-4.8); LYMPHOCYTES % (AUTO) 16.6 % (21-51); MEAN CORPUSCULAR HEMOGLOBIN 28.8 PG (27.0-31.0); MEAN CORPUSCULAR HGB CONC 32.6 g/dL (33.0-36.5); MEAN CORPUSCULAR VOLUME 88.3 FL (78-98); MEAN PLATELET VOLUME 8.2 FL (7.4-10.4); MONOCYTES # (AUTO) 1.5 X10'3 (0-0.9); MONOCYTES % (AUTO) 13.7 % (2-12); NEUTROPHILS # (AUTO) 7.2 X10'3 (1.8-7.7); PLATELET COUNT 247 X10'3 (140-440); RED BLOOD COUNT 2.99 X10'6 (4.20-5.60); RED CELL DISTRIBUTION WIDTH 14.8 % (11.5-14.5); WHITE BLOOD COUNT 10.8 X10'3 (4.5-11.0)
[2023-02-26 07:08] LABS: ALBUMIN 2.5 G/DL (3.4-5.0); ANION GAP 7 (8-16); BLOOD UREA NITROGEN 23 MG/DL (7-18); BUN/CREATININE RATIO 19.2 (10.0-20.0); CALCIUM 9.1 MG/DL (8.5-10.1); CHLORIDE 104 MMOL/L (99-107); GLUCOSE 131 MG/DL (70-104); POTASSIUM 4.3 MMOL/L (3.5-5.1); SODIUM 136 MMOL/L (135-145); TOTAL CARBON DIOXIDE 25.4 MMOL/L (24-32); eCRCL 34 ML/MIN; eGFR 43 ML/MIN
[2023-02-26] MEDS: lactose-reduced food (Ensure Enlive) - 237ml bottle PO SCH ×3 (08:00→18:25)
[2023-02-26] MEDS: tamsulosin 0.4mg capsule PO SCH (09:18)
[2023-02-26] MEDS: pantoprazole 40mg Tablet.DR PO SCH (09:18)
[2023-02-26] MEDS: metoprolol tartrate 12.5mg (1/2 tablet) PO SCH ×2 (09:18→20:00)
[2023-02-26] MEDS: sennosides/docusate sodium tablet PO SCH ×2 (09:18→21:54)
[2023-02-26] MEDS: oxybutynin 5mg tablet PO PRN (09:19)
[2023-02-26] MEDS: aspirin 81mg tab.chew PO SCH (09:21)
[2023-02-26] MEDS: magnesium Cl slow-release 64mg tablet PO SCH ×2 (09:36→20:00)
[2023-02-26] MEDS: caffeine citrate injection 60 MG in dextrose 5%-water 50ml 50 ML IV SCH (09:36)
[2023-02-26] MEDS: HYDROcodone/acetaminophen 5mg/325mg tablet PO PRN ×3 (09:43→21:56)
--- NOTE | 2023-02-26 11:48 | NUR ---
Initial: Pt post-op day 6 s/p CABG and AVR per EMR. Pt remains on vegetarian/no concentrated sweets diet with average PO intake of 42% x 15 meals. Pt also receiving Ensure Enlive TIDWM with average intake of 75% x 4 ONS. PO and ONS intake combined met 100% of estimated kcal and protein needs. LBM on 02/25 per EMR. Will continue to monitor and make recommendations as appropriate. Rec: 1. continue NCS/vegetarian diet per MD order and pt preferences; almond milk TIDWM still eats eggs 2. Ensure Enlive TIDWM; encourage PO meals/ONS 3. Routine bowel care 4. Weekly scaled wts Addendum: 02/26/23 at [address] Amended: Links added.
[2023-02-26] MEDS: amiodarone 200mg tablet PO SCH ×2 (12:39→21:55)
[2023-02-26] MEDS: atorvastatin 10mg tablet PO SCH (21:55)
[2023-02-27] VITALS (8 sets, daily range): BP systolic 116–126; BP diastolic 48–66; PULSE 77–115; RESP 16–20; TEMP 97.7–98.4; O2SAT 92–95
[2023-02-27 06:45] LABS: BASOPHILS % (AUTO) 0.4 % (0-1); EOSINOPHILS # (AUTO) 0.3 X10'3 (0-0.9); EOSINOPHILS % (AUTO) 3.1 % (0-6); HEMOGLOBIN 8.5 g/dl (12.0-16.0); LYMPHOCYTES # (AUTO) 1.8 X10'3 (1.1-4.8); MEAN CORPUSCULAR HGB CONC 32.8 g/dL (33.0-36.5); MEAN CORPUSCULAR VOLUME 88.5 FL (78-98); MEAN PLATELET VOLUME 8.1 FL (7.4-10.4); MONOCYTES # (AUTO) 1.3 X10'3 (0-0.9); MONOCYTES % (AUTO) 12.4 % (2-12); NEUTROPHILS # (AUTO) 7.2 X10'3 (1.8-7.7); NEUTROPHILS % (AUTO) 67.1 % (42-75); PLATELET COUNT 284 X10'3 (140-440); RED BLOOD COUNT 2.94 X10'6 (4.20-5.60); RED CELL DISTRIBUTION WIDTH 14.9 % (11.5-14.5); WHITE BLOOD COUNT 10.8 X10'3 (4.5-11.0)
[2023-02-27] MEDS: pantoprazole 40mg Tablet.DR PO SCH (06:59)
[2023-02-27 07:00] LABS: ALBUMIN 2.4 G/DL (3.4-5.0); ANION GAP 5 (8-16); BLOOD UREA NITROGEN 22 MG/DL (7-18); BUN/CREATININE RATIO 19.6 (10.0-20.0); CALCIUM 9.4 MG/DL (8.5-10.1); CHLORIDE 104 MMOL/L (99-107); CREATININE 1.12 MG/DL (0.40-0.90); GLUCOSE 125 MG/DL (70-104); POTASSIUM 4.3 MMOL/L (3.5-5.1); SODIUM 137 MMOL/L (135-145); TOTAL CARBON DIOXIDE 28.2 MMOL/L (24-32); eCRCL 37 ML/MIN; eGFR 47 ML/MIN
[2023-02-27] MEDS: HYDROcodone/acetaminophen 5mg/325mg tablet PO PRN ×2 (07:00→14:43)
[2023-02-27] MEDS: lactose-reduced food (Ensure Enlive) - 237ml bottle PO SCH ×2 (08:00→13:00)
[2023-02-27] MEDS ORDERED: caffeine citrate injection 60 MG in dextrose 5%-water 50ml 50 ML IV SCH (08:00)
[2023-02-27] MEDS: oxybutynin 5mg tablet PO PRN (09:14)
[2023-02-27] MEDS: aspirin 81mg tab.chew PO SCH (09:14)
[2023-02-27] MEDS: amiodarone 200mg tablet PO SCH (09:14)
[2023-02-27] MEDS: sennosides/docusate sodium tablet PO SCH (09:15)
[2023-02-27] MEDS: tamsulosin 0.4mg capsule PO SCH (09:16)
[2023-02-27] MEDS: metoprolol tartrate 12.5mg (1/2 tablet) PO SCH (09:16)
[2023-02-27] MEDS: magnesium Cl slow-release 64mg tablet PO SCH (09:18)
--- NOTE | 2023-02-27 15:53 | NUR ---
called report to chano dawson at [facility]. all questions answered. let chano know about left forearm thrombophlebitis related to the caffeine citrate infusion infiltrating into the tissues on 02/26 piv was removed and warm compresses have been applied continuously md assessed the site with no new orders written - also made chano aware of the patients caffeine pills that she has taken for many years. we have been supplementing with IV caffeine, however, the concern is, the IV caffeine is not as effective as her "pills" the son Hugh has been asked to bring the caffeine pills to [facility]. Chano at [facility] is aware of this and will note the chart. pt does have a collapsed left lung that is not requiring a chest tube at this time per the md. pt hand picker time is 1630
--- NOTE | 2023-02-27 17:02 | NUR ---
pt picked up by medical transportation at 1630. vss pt pain is controlled and she is ready to go to rehab. left via [facility].
== END 2023-02-27 16:44 | DRG 219 ==
LOC: PAS IN 05:29 → CICU 2S 11:25 → PCU 3S 02-24 22:35
PROVIDERS: ADMIT Thoracic Surgery (Cardiothoracic Vascular Surgery); ATTEND Thoracic Surgery (Cardiothoracic Vascular Surgery)
PROC: 021109W Bypass Coronary Artery, Two Arteries from Aorta with Autologous Venous Tissue, Open Approach (ICD-10-PCS; 2023-02-20)
PROC: 02100Z9 Bypass Coronary Artery, One Artery from Left Internal Mammary, Open Approach (ICD-10-PCS; 2023-02-20)
PROC: 06BQ4ZZ Excision of Left Saphenous Vein, Percutaneous Endoscopic Approach (ICD-10-PCS; 2023-02-20)
PROC: 07BD0ZX Excision of Aortic Lymphatic, Open Approach, Diagnostic (ICD-10-PCS; 2023-02-20)
PROC: 5A1221Z Performance of Cardiac Output, Continuous (ICD-10-PCS; 2023-02-20)
PROC: 02RF08N Replacement of Aortic Valve with Zooplastic Tissue, using Rapid Deployment Technique, Open Approach (ICD-10-PCS; principal; 2023-02-20 07:53)
PROC: 5A0935A Assistance with Respiratory Ventilation, Less than 24 Consecutive Hours, High Flow/Velocity Cannula (ICD-10-PCS; 2023-02-21)
PROC: 5A09357 Assistance with Respiratory Ventilation, Less than 24 Consecutive Hours, Continuous Positive Airway Pressure (ICD-10-PCS; 2023-02-23)
PROC: 5A09357 Assistance with Respiratory Ventilation, Less than 24 Consecutive Hours, Continuous Positive Airway Pressure (ICD-10-PCS; 2023-02-24)
DX: I25.10 Atherosclerotic heart disease of native coronary artery without angina pectoris (principal); J96.01 Acute respiratory failure with hypoxia; J98.11 Atelectasis; J98.19 Other pulmonary collapse; I35.0 Nonrheumatic aortic (valve) stenosis; E66.01 Morbid (severe) obesity due to excess calories; I48.91 Unspecified atrial fibrillation; I35.2 Nonrheumatic aortic (valve) stenosis with insufficiency; I10 Essential (primary) hypertension; E87.70 Fluid overload, unspecified; E78.5 Hyperlipidemia, unspecified; Z68.34 Body mass index [BMI] 34.0-34.9, adult
CPT/HCPCS: 36415; 36600; 71045; 71046; 71250; 80048; 80053; 81001; 82330; 82435; 82803; 82947; 82948; 83036; 83735; 84100; 84132; 84295; 85007; 85018; 85025; 85347; 85384; 85610; 85730; 86885; 86900; 86901; 86920; 87077; 87081; 87088; 87186; 88305; 93005; 93312; 93325; 93880; 93970; 94002; 94010; 94668; 94760; 97116; 97161; 97530; 97535; A4333; A4615; A4618; A6213; A6258; A6449; A7000; A7048; C1751; G0378; J0171; J0282; J0690; J0706; J1250; J1644; J1815; J1940; J2060; J2270; J2370; J2405; J2440; J2704; J2720; J3370; J3475; J3480; J3490; J7030; J7040; J7050; J7060; J7120; P9045; P9047